=== PATIENT | female | born 1960 | race Caucasian/White ===

== ENCOUNTER 2018-01-30 09:44 | Outpatient (CLI) | payer MEDICARE, MEDICAID ==
--- NOTE | 2018-01-30 13:14 | MRI ---
BRAIN MRI WITH AND WITHOUT COTNRAST: COMPARISON: Reference is made to prior MRI brain exams dating back to 03/10/2009, the most recent of which is lacey ed 01/14/2017. INDICATION: Multiple sclerosis, intracranial mass, followup. FINDINGS: Extraaxial mass at the inferior right frontal region of the posterior aspect of the right anterior cr anial fossa is grossly stable at 1.3 x 1.0 cm in axial dimensions most consistent with a stable menin gioma. Susceptibility is present indicating calcified component. There is no acute territorial infarction or midline shift. Mild prominence of the ventricular system is present and there are multiple periventricular signal abnormalities again demonstrated compatible with demyelinating plaques in light of the patient's history of multiple sclerosis. Many of these l esions are cavitary, although there are no enhancing lesions to indicate actively demyelinating plaqu es. Exam is grossly stable to most recent comparison exam 01/14/2017. IMPRESSION: Stable brain MRI with findings indicative of multiple sclerosis with several demyelinating plaques, a s well as a stable avidly enhancing extraaxial mass compatible with meningioma. POS: [facility]
[2018-01-30] MEDS ORDERED: Gadobenate Dimeglumine 529 MG/1 ML (20ML VIAL) ONE (16:34)
== END 2018-01-30 09:45 | disposition home or self-care (01) ==
LOC: MRI 09:44
PROVIDERS: ATTEND Psychiatry & Neurology Neurology
DX: G35 Multiple sclerosis (principal); G93.9 Disorder of brain, unspecified
CPT/HCPCS: 70553

== ENCOUNTER 2018-11-10 12:50 | Outpatient (CLI) | payer MEDICARE, MEDICAID ==
--- NOTE | 2018-11-10 14:10 | ULT ---
RENAL ULTRASOUND: INDICATION: Neurogenic bladder. Incontinence. FINDINGS: Both kidneys have a normal sonographic appearance. No evidence of hydronephrosis or mass lesion. Remy th kidneys are symmetric size. The right kidney measures 9.4 cm and the left kidney measures 10.8 cm . The bladder is mildly distended and appears unremarkable. A post void volume was unable to be obtain ed. The prevoid bladder volume is recorded at 208 cc. IMPRESSION: Unremarkable renal ultrasound. POS: [facility]
== END 2018-11-10 12:51 | disposition home or self-care (01) ==
LOC: BICULT 12:50
PROVIDERS: ATTEND Urology
DX: N39.41 Urge incontinence (principal); G35 Multiple sclerosis; N31.9 Neuromuscular dysfunction of bladder, unspecified
CPT/HCPCS: 76770

== ENCOUNTER 2019-01-09 07:05 | Day surgery (SDC) | payer MEDICARE, MEDICAID ==
[2019-01-08 11:33] VITALS: BMI 23.3
[2019-01-09 07:20] LABS: #Basophils 0.1 thou/uL (0.0-0.2); #Eosinphils 0.1 thou/uL (0.0-0.7); #Lymphocytes 1.5 thou/uL (1.20-3.40); #Monocytes 0.6 thou/uL (0.11-0.59); #Neutrophils 2.6 thou/uL (1.40-6.50); %Basophils 1.4 % (0.0-1.0); %Eosinophils 2.2 % (0.0-10.0); %Lymphocytes 30.3 % (21.0-51.0); %Monocytes 13.2 % (0.0-10.0); %Neutrophils 52.8 % (42.0-75.0); Hemoglobin 14.2 g/dL (12.0-16.0); Mean Corpuscular HGB CONC 33.6 g/dL (32.0-36.0); Mean Corpuscular Hemoglobin 30.9 pg (27.0-31.0); Mean Corpuscular Volume 92.1 fL (78.0-98.0); Mean Platelet Volume 7.6 fL (7.4-10.4); Platelet Count 301 thou/uL (130-400); RBC Distribution Width 11.1 % (11.5-14.5); Red Blood Cell (RBC) Count 4.58 mill/uL (4.20-5.40); White Blood Cell (WBC) Count 4.9 thou/uL (4.8-10.8)
[2019-01-09 07:40] LABS: PTT 64.9 SEC (22.9-36.1)
[2019-01-09] MEDS ORDERED: Sodium Bicarbonate 2.5 MEQ/5 ML VIAL ONE (08:29)
[2019-01-09] MEDS ORDERED: Fentanyl 100 MCG/2 ML VIAL ONE (08:30)
[2019-01-09] MEDS ORDERED: Midazolam HCl 2 mg/2 ml Vial ONE (08:30)
[2019-01-09] MEDS ORDERED: SODIUM CHLORIDE 0.9% IVPB SCH (09:45)
[2019-01-09] MEDS ORDERED: CLINDAMYCIN IVPB SCH (09:45)
--- NOTE | 2019-01-09 09:53 | CT ---
Suprapubic catheter placement CT-guided Conscious sedation: At least 20 minutes were spent with the patient for conscious sedation. HISTORY: Dysfunctional bladder. Multiple sclerosis. FINDINGS: After explaining the procedure and answering all questions, limited CT imaging of the pelvi s was performed. Approximately 500 cc of sterile saline was instilled into the urinary bladder via the indwelling Rodriguez catheter. Sterile technique, buffered local anesthesia, conscious sedation, CT guidance, and an anterior midlin e suprapubic approach were used to carefully advance a 12-gauge catheter into the urinary bladder via trocar technique. Position was confirmed. Balloon inflated and clear urine drained. The catheter was secured externally with 0 silk suture and left draining to gravity. Patient tolerate d the procedure well and was returned to the holding area in good condition for further monitoring. IMPRESSION: Technically successful suprapubic catheter placement.
[2019-01-09] MEDS ORDERED: FLU VACC QS2019-20(6MOS UP)/PF 60 MCG/0.5 ML SYRINGE IM ONE (11:45)
== END 2019-01-09 11:40 | disposition home or self-care (01) ==
LOC: SPEC 07:05
PROVIDERS: ATTEND Urology
PROC: 0T9B30Z Drainage of Bladder with Drainage Device, Percutaneous Approach (ICD-10-PCS; principal; 2019-01-09)
DX: N31.9 Neuromuscular dysfunction of bladder, unspecified (principal); N39.41 Urge incontinence; G35 Multiple sclerosis; G62.9 Polyneuropathy, unspecified; Z87.891 Personal history of nicotine dependence; Z79.899 Other long term (current) drug therapy; Z88.0 Allergy status to penicillin
CPT/HCPCS: 51102; 77002; 85025; 85610; 85730; C2627; 36415; J2250; J3010; J3490

== ENCOUNTER 2019-02-03 12:17 | Outpatient (CLI) | payer MEDICARE, MEDICAID ==
--- NOTE | 2019-02-03 13:57 | MRI ---
BRAIN MRI WITH AND WITHOUT CONTRAST: Date: 02/03/2019 COMPARISON: 01/30/2018. HISTORY: Evaluate multiple sclerosis. TECHNIQUE: Multiplanar multisequence MR imaging of the brain obtained with and without contrast. FINDINGS: The diffusion weighted imaging demonstrates no evidence for acute infarction. The axial gradient echo imaging demonstrates no evidence for intracranial hemorrhage. The imaged paranasal sinuses and mastoid air cells demonstrate normal signal intensity. Arterial flow voids at the axial level of the skull base appear unremarkable on the T2-weighted imagi ng. There are numerous foci of increased T2 and FLAIR signal involving the periventricular, deep, and sub cortical white matter bilaterally. There is associated stable diffuse cerebral volume loss. There are scattered areas of increased signa l intensity also noted within the yazmin and upper medulla anteriorly and posteriorly, unchanged when compared to the prior examination as well. There is an enhancing extra-axial mass measuring 1.2 cm within the anteromedial aspect of the right t emporal region in the supraclinoid region, stable when compared to prior imaging, most consistent with a stable meningioma. Sagittal FLAIR imaging demonstrates diffuse volume loss involving the body of the corpus callosum, pa rticularly posteriorly, with foci of increased signal consistent with the patient's history of multiple sclerosis. The postcontrast imaging demonstrates no abnormal enhancement within the brain parenchyma. IMPRESSION: Findings consistent with the patient's history of multiple sclerosis, not significantly changed. Stab le enhancing right-sided extra-axial lesion, most consistent with a meningioma. Transcribed Date/Time: 02/03/2019 2:13 PM
== END 2019-02-03 12:18 | disposition home or self-care (01) ==
LOC: BICMRI 12:17
PROVIDERS: ATTEND Psychiatry & Neurology Neurology
DX: G35 Multiple sclerosis (principal); G93.9 Disorder of brain, unspecified
CPT/HCPCS: 70553

== ENCOUNTER 2019-04-15 11:45 | Outpatient (CLI) | payer MEDICARE, MEDICAID ==
--- NOTE | 2019-04-15 14:03 | MRI ---
MRI THORACIC SPINE WITH AND WITHOUT CONTRAST: INDICATIONS: Multiple sclerosis. COMPARISON: There are no comparison studies. FINDINGS: Motion artifact degrades the lower thoracic cord and cervical spine. The upper and mid cord signal appears normal on T2 and post contrast images. The sagittal T2 images appear unremarkable. There is no cord abnormality. On the axial T2 images, there is some heterogeneity seen in the lower thoracic cord, which is felt to be most consistent with motion artifact. I cannot completely exclude a demyelinating plaque in this region, however the findings are probably due to motion. The thoracic vertebrae maintain height and alignment. No significant disk bulge or protrusion. There is no evidence of central canal or foraminal stenosis. IMPRESSION: 1. Mild heterogeneous signal in the lower thoracic cord, seen on T2 axial images only. This is not co nfirmed on the T2 sagittal. No definite enhancement identified. While cord plaques in this region can not be completely excluded, the abnormalities are felt to be related to motion artifact on the axial T2 sequence. 2. Incidentally noted on the very first axial image, which is through the C6-C7 disk space, is eviden ce of a focal disk protrusion, which impinges on the cord. This should be further evaluated with a de dicated MRI of the cervical spine. POS: [facility]
--- NOTE | 2019-04-15 14:29 | MRI ---
MRI CERVICAL SPINE WITH AND WITHOUT CONTRAST: INDICATIONS: Multiple sclerosis. COMPARISON: None. FINDINGS: The cervical vertebrae maintain normal height and alignment. The disk spaces are preserved. At C3-C4 there is a diffuse disk bulge centrally with evidence of a disk protrusion paracentrally to the right, which impinges on the anterior cord on the right and may displace the exiting right C4 ner ve root. At C4-C5 mild disk bulge and spondylosis flatten the thecal sac, however the anterior subarachnoid sp bekah is preserved. No cord impingement or foraminal stenosis. At C5-C6 there is a prominent central disk protrusion which has inferior migration along the posterio r border of the C6 vertebra and continues to the C6-C7 disk level. This inferiorly migrated disk frag ment measures 7 mm in AP dimension in the axial projection. It compresses the anterior cord centrally . This extruded disk extends to the C6-C7 level and could potentially represent an extruded disk wit h superior migration from the C6-C7 level. At C7-T1 mild disk bulge without central canal or foraminal stenosis. Review of the cord signal shows a focal area of increased T2 signal in the cord at the C2 level. No e nhancement. This would be suspicious for MS plaque given the history of MS. There is also abnormal cord signal seen at the C3-C4 level, however, this is at the site of cord comp ression. MS plaque would be suspected although focal myelomalacia due to cord compression is a consid eration. There is also abnormal cord signal seen at C5-C6 and extending along the cord throughout the C6 verte bra, to the C6-C7 level. This is also associated with severe cord compression due to the extruded dis k, raising the possibility of myelomalacia versus MS plaque. No abnormal cord enhancement. IMPRESSION: 1. Focal disk protrusion at C3-C4 with cord compression anteriorly on the right. 2. Large extruded disk at C5-C6 with disk fragment extending inferiorly along the C6 vertebra to the C6-C7 disk space. This compresses the cervical cord, as described above. 3. There are scattered areas of abnormal cord signal seen on the T2 sequences, most apparent in the a xial T2. Signal in the upper cord at the C2 level would be consistent with multiple sclerosis plaque. There are other areas of cord signal seen at the C3-C4, C5-C6 and C6-C7 levels, which are associated with cord compression, as described above. POS: [facility]
[2019-04-15] MEDS ORDERED: Magnevist 469MG/ML 20 ML VIAL ONE ×2 (15:59)
== END 2019-04-15 11:46 | disposition home or self-care (01) ==
LOC: MRI 11:45
DX: G35 Multiple sclerosis (principal); M50.21 Other cervical disc displacement, high cervical region
CPT/HCPCS: 72156; 72157; A9579

== ENCOUNTER 2020-02-08 21:12 | Inpatient (IN) | payer MEDICARE, MEDICAID ==
[~2020-02-08 21:12] MED LIST: Glycopyrrolate 0.2 MG/ML 5 ML SYRINGE ONE; Ketorolac Tromethamine 30 MG/ML VIAL ONE; Lidocaine 1% PF 5 ML VIAL ONE; PROPOFOL 200 MG/20 ML VIAL ONE; Rocuronium Bromide 10 MG/ML (10ML VIAL) ONE; Succinylcholine 200 MG/10 ml SYRINGE FS ONE
[2020-02-08] MEDS ORDERED: Albumin 25% 100 ML ONE (21:56)
--- NOTE | 2020-02-08 22:48 | HP ---
HISTORY OF PRESENT ILLNESS: Alondra Mendez is a 59-year-old female, who lives at home with her mother. The patient has MS, is bed ridden, uses Keyonna lift for mobility. Her mother manages her care. The patient has a suprapubic catheter. The patient became weak with abdominal distention, nausea, vomiting, increased abdominal pain. The patient was seen at [facility] as she was tachycardic and tachypneic and COVID rapid test was negative. Blood gases 7.295, 46, 30, bicarb 22.8. Sodium 136, potassium 4.3, CO2 of 25, glucose of 209, calcium 9.5, BUN 25, creatinine 1.2, GFR 45. Liver function tests are normal. White count of 21,000, hemoglobin 18, platelet count 440,000. EKG, sinus tachycardia. 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 Ascites was noted. The patient was transferred by ambulance and arrives although deliberately communicative. She is coherent. ALLERGIES: PENICILLIN. SOCIAL HISTORY: Tobacco, none. Alcohol, none. MEDICATIONS: 1. MiraLAX. 2. Citrucel. Medication list is not sent with the patient and the family has a medication list, will bring it. PAST SURGICAL HISTORY: Hysterectomy, suprapubic tube. PAST MEDICAL HISTORY: MS. REVIEW OF SYSTEMS: Noncontributory. PHYSICAL EXAMINATION: VITAL SIGNS: Heart rate 125, respiratory rate 18, blood pressure 126/78. HEAD, EARS, EYES, NOSE, AND THROAT: Unremarkable. LUNGS: Clear to auscultation. CARDIAC: Sinus tachycardia. ABDOMEN: Distended, rigid, peritoneal signs, guarding throughout. EXTREMITIES: Unremarkable. ASSESSMENT AND PLAN: 1. Acute abdomen with cecal volvulus. The patient has had Levaquin and Flagyl about 7:00 p.m. She is allergic to penicillin. She received intravenous fluids. We will plan operative intervention with procedures indicated most likely, right colectomy. Risks of infection, bleeding, reoperation, anastomotic leakage discussed. Risks and benefits were explained. Plan, operative intervention tonight. 2. Multiple sclerosis, bed ridden, immobile, suprapubic tube. Increased morbidity of pneumonia, DVT, etc. 3. DVT prophylaxis. Job ID: [id number]
[2020-02-08] MEDS ORDERED: Fentanyl 100 MCG/2 ML VIAL ONE (22:54)
[2020-02-08] MEDS ORDERED: Propofol 1,000 MG/100 ML VIAL IV ONE (23:16)
[2020-02-08] MEDS ORDERED: Promethazine HCl 25 MG/ML VIAL SLOW IVP PRN (23:30)
[2020-02-08] MEDS ORDERED: Ondansetron HCl/PF 4 MG/2 ML Vial IVP PRN (23:30)
[2020-02-08] MEDS ORDERED: Promethazine HCl 25 MG/ML VIAL IM PRN (23:30)
--- NOTE | 2020-02-08 23:44 | RAD ---
RADIOGRAPH CHEST 1 VIEW: DATE: 02/08/2020 TIME: 11:31 PM HISTORY: 59-year-old female status post central line placement COMPARISON: 09/18/2016 FINDINGS: New finding of silhouetting of most of the left hemidiaphragm and blunting of the left lateral costop hrenic angle. The rest of the visualized lung kang are clear. No cardiomegaly. New left subclavian central venous catheter with distal tip overlying upper portion of right atrium. No pneumothorax. IMPRESSION: 1) left-sided central venous catheter placement without pneumothorax. 2) nonspecific changes at the left lung base, which could be atelectasis or pneumonia, with and witho ut left pleural effusion.
[2020-02-08] MEDS ORDERED: Sodium Chloride 0.9% (PF) 10 ML VIAL FS PRN (23:45)
[2020-02-08] MEDS ORDERED: Morphine 4 MG/ML VIAL SLOW IVP PRN (23:48)
[2020-02-08] MEDS ORDERED: Ondansetron PF 4 MG/2 ML Vial IVP PRN (23:48)
[2020-02-08] MEDS ORDERED: Ondansetron ODT 8 MG TAB SL PRN (23:49)
[2020-02-09] MEDS ORDERED: Fentanyl 100 MCG/2 ML VIAL ONE (00:09)
--- NOTE | 2020-02-09 01:10 | OP ---
DATE OF PROCEDURE: 02/08/2020 PREOPERATIVE DIAGNOSES: Cecal volvulus, multiple sclerosis, nonambulatory, suprapubic tube. POSTOPERATIVE DIAGNOSES: Cecal volvulus, multiple sclerosis, nonambulatory, suprapubic tube. PROCEDURE PERFORMED: Left subclavian vein central line, exploratory laparotomy, right colectomy, primary anastomosis. ANESTHESIA: General. ESTIMATED BLOOD LOSS: Less than 20 mL. BLOOD TRANSFUSION: None. DESCRIPTION OF PROCEDURE: Patient was taken to the operating room, where under general anesthesia, left upper clavicular area was prepared with ChloraPrep and draped in routine fashion. Seldinger technique used to place a left subclavian vein. Triple-lumen catheter secured with 3-0 silk suture and each port aspirated blood, flushed with saline solution. Sterile dressing applied. Abdomen prepared with ChloraPrep and draped in routine fashion. Midline incision made, carried down to skin, subcutaneous tissue down to fascia which was incised, entered the abdominal cavity sharply using cautery for hemostasis. There was a cecal volvulus. This was detorsed. The cecum was massively distended. Small bowel was of normal caliber. Remainder of the ascending colon, transverse colon was normal. About 8 inches from the ileocecal valve, the mesentery divided with cautery. Ileum divided with a YAMILET stapler. Right colon was very redundant and mesentery divided with LigaSure. The ileocolic vessel pedicle identified, doubly clamped, divided, and ligated with 2-0 silk ties. Duodenum identified, kept free of harm. Mesentery mobilized. Hepatic flexure taken down with the cautery and LigaSure. Proximal transverse colon divided with a YAMILET stapler. Specimen submitted to pathology. Ileocolic anastomosis was created with three fires of the YAMILET stapler, [id number] anastomosis. Mesentery closed with 3-0 silk. Anastomosis reinforced with interrupted seromuscular sutures with 3-0 silk. Good anastomosis palpated. Good hemostasis noted. Abdominal cavity irrigated. Ascites had been evacuated of more than 2 L. Abdominal cavity irrigated, irrigant evacuated, hemostasis noted. Sponge and needle counts were correct. Midline fascia closed with continuous suture of #1 PDS. Skin and subcutaneous tissues irrigated. Gloves and gowns changed. Skin approximated with chavez. DEXTER dressing applied. Patient tolerated the procedure well. Job ID: [id number]
[2020-02-09 04:47] LABS: #Lymphocytes 1.1 thou/uL (1.20-3.40); #Monocytes 1.9 thou/uL (0.11-0.59); #Neutrophils 12.5 thou/uL (1.40-6.50); %Basophils 0.2 % (0.0-1.0); %Eosinophils 0.1 % (0.0-10.0); %Lymphocytes 6.8 % (21.0-51.0); %Neutrophils 80.9 % (42.0-75.0); Hemoglobin 12.4 g/dL (12.0-16.0); Mean Corpuscular HGB CONC 33.1 g/dL (32.0-36.0); Mean Corpuscular Hemoglobin 30.5 pg (27.0-31.0); Mean Corpuscular Volume 92.2 fL (78.0-98.0); Mean Platelet Volume 8.3 fL (7.4-10.4); Platelet Count 287 thou/uL (130-400); RBC Distribution Width 11.5 % (11.5-14.5); Red Blood Cell (RBC) Count 4.05 mill/uL (4.20-5.40); White Blood Cell (WBC) Count 15.5 thou/uL (4.8-10.8)
[2020-02-09 05:02] LABS: Phosphorus 2.8 mg/dL (2.3-4.7)
[2020-02-09 05:04] LABS: Anion Gap 13 mmol/L (10-20); BUN (Urea Nitrogen) 22 mg/dL (9.8-20.1); Calc. Creatinine Clearance 0 mL/min (70-130); Carbon Dioxide 23 mmol/L (22-29); Chloride 102 mmol/L (98-107); Estimated GFR-MDRD 90; Glucose 128 mg/dL (70-105); Potassium 3.3 mmol/L (3.5-5.1); Sodium 135 mmol/L (136-145)
[2020-02-09] MEDS: Pantoprazole 40 MG VIAL IVP SCH (09:00)
[2020-02-09] MEDS ORDERED: Gabapentin 300 MG CAP PO SCH (09:00)
[2020-02-09] MEDS: Enoxaparin Sodium 40 MG/0.4 ML SYRINGE SC SCH (09:00)
[2020-02-09] MEDS ORDERED: Sodium Chloride 0.9% 1,000 ML IV SCH (09:30)
[2020-02-09] MEDS ORDERED: Potassium Chloride 20 MEQ TAB PO SCH (09:30)
--- NOTE | 2020-02-09 09:50 | PRG ---
DATE OF SERVICE: SUBJECTIVE: Ms. Mendez is doing well today. She has spent the night on PACU due to lack of IMCU beds. Heart rate is 110, blood pressure 90s to low one 100s. Labs this morning; sodium 135, potassium 3.3, creatinine 0.67, BUN 22. White count 15, hemoglobin 12. Urine output has been 300 overnight, marginal. Renal function is normal with improvement of her BUN. OBJECTIVE: LUNGS: Clear to auscultation. CARDIAC: Regular rate and rhythm without murmur or gallop. ABDOMEN: Soft, nondistended, plus bowel sounds. Dahlia suction incisional VAC in place. EXTREMITIES: Unremarkable. ASSESSMENT AND PLAN: Doing well status post laparotomy and right colectomy for cecal volvulus. The patient will be transferred to the surgical floor or any other bed available. She spends most of her day in a chair at home out of bed using a Keyonna lift to transfer her. We will need to get her out of bed today and she will spend most of the day in a neuro chair. We will replace her hypokalemia. She has slight tachycardia and urine is concentrated. We will give her another fluid bolus and repeat as necessary. Recheck her labs tomorrow. Discharge planning for later in the week. Job ID: [id number]
[2020-02-09] MEDS: Lactated Ringer's 1,000 ML IV SCH ×3 (12:11→19:40)
[2020-02-09] MEDS: Ketorolac Tromethamine 30 MG/ML VIAL IVP PRN (15:18)
[2020-02-09] MEDS: Acetaminophen 500 MG TAB PO PRN (19:40)
[2020-02-09] MEDS: Gabapentin 300 MG CAP PO SCH (21:37)
[2020-02-10] MEDS: Lactated Ringer's 1,000 ML IV SCH (02:24)
[2020-02-10 05:34] LABS: #Lymphocytes 1.7 thou/uL (1.20-3.40); #Monocytes 1.1 thou/uL (0.11-0.59); #Neutrophils 5.1 thou/uL (1.40-6.50); %Basophils 0.4 % (0.0-1.0); %Eosinophils 0.5 % (0.0-10.0); %Monocytes 13.9 % (0.0-10.0); %Neutrophils 64.2 % (42.0-75.0); Hemoglobin 10.6 g/dL (12.0-16.0); Mean Corpuscular HGB CONC 33.5 g/dL (32.0-36.0); Mean Corpuscular Hemoglobin 31.2 pg (27.0-31.0); Mean Corpuscular Volume 93.1 fL (78.0-98.0); Mean Platelet Volume 7.8 fL (7.4-10.4); Platelet Count 220 thou/uL (130-400); RBC Distribution Width 11.5 % (11.5-14.5); White Blood Cell (WBC) Count 7.9 thou/uL (4.8-10.8)
[2020-02-10 05:51] LABS: Anion Gap 10 mmol/L (10-20); BUN (Urea Nitrogen) 8 mg/dL (9.8-20.1); Calc. Creatinine Clearance 127 mL/min (70-130); Calcium 8.2 mg/dL (7.8-10.44); Carbon Dioxide 26 mmol/L (22-29); Chloride 111 mmol/L (98-107); Estimated GFR-MDRD Greater than 90; Glucose 88 mg/dL (70-105); Potassium 3.9 mmol/L (3.5-5.1); Sodium 143 mmol/L (136-145)
[2020-02-10] MEDS ORDERED: Lactated Ringer's 1,000 ML IV SCH (08:07)
[2020-02-10] MEDS: Bupropion 150 MG XL TAB PO SCH (08:30)
[2020-02-10] MEDS: Pantoprazole 40 MG VIAL IVP SCH (08:30)
[2020-02-10] MEDS: Enoxaparin Sodium 40 MG/0.4 ML SYRINGE SC SCH (08:30)
[2020-02-10] MEDS: Acetaminophen 500 MG TAB PO PRN (08:35)
--- NOTE | 2020-02-10 13:22 | PQF ---
CLINICAL DOCUMENTATION CLARIFICATION FORM: Dear Dr. Milton Smith Date: 02/10/20 1300 Please exercise your independent, professional judgment in responding to the clarification form. Clinical indicators are provided on the bottom of this form for your review. Please check appropriate box(es): [ ] Pneumonia secondary to (specify organism / underlying disease) [ ] Simple Pneumonia [ ] Pneumonia of unknown etiology [ ] Other diagnosis [ ] Unable to determine In addition, please specify: Present on Admission (POA): [ ] Yes [ ] No [ ] Unable to determine For continuity of documentation, please document condition throughout progress notes and discharge summary. Thank You. To be completed by CDI/Coding staff for physician review: CLINICAL INDICATORS - SIGNS / SYMPTOMS / LABS / RESULTS AND LOCATION IN MR Increased morbidity of pneumonia ( H8P/ [place] ) 02/07 CXR : nonspecific changes at the lung base, which could be atelectasis or pneumonia, with and without left pleural effusion. (02/07) WBC 15.5 (02/08) RISK FACTORS / RESULTS AND LOCATION IN MR Sepsis (ED Report) 02/07 Recent SX : Exploratory Laparotomy ([place]/ 02/08) TREATMENTS / RESULTS AND LOCATION IN MR Levaquin 02/07 CXR 02/07 Flagyl 02/07 CDS Signature: Brittany Marie RN Phone #: [phone] Date:02/10/2020 This is a permanent part of the Medical Record [facility]
--- NOTE | 2020-02-10 17:57 | PRG ---
DATE OF SERVICE: 02/10/2020 SUBJECTIVE: Ms. Mendez is doing well today. She has not had any nausea or vomiting. She has not passed gas. She has not been out of bed. We will request that nursing staff get her out of bed into a neuro chair. At home, she spends most of the day in a chair out of bed. The patient states she would like to stay here if she likes the care here. OBJECTIVE: VITAL SIGNS: Temperature 97.9 degrees, pulse 87, and blood pressure 144/73. Urine output is very good, 2800 for 24 hours. LUNGS: Clear to auscultation. CARDIAC: Regular rate and rhythm without murmur or gallop. ABDOMEN: Soft, slightly distended, slightly tympanitic. Bowel sounds present. Has DEXTER wound suction incisional VAC in place. EXTREMITIES: Unremarkable. LABORATORY DATA: White count 7 and hemoglobin 10.6. Basic metabolic profile normal. ASSESSMENT AND PLAN: The patient tolerates liquids. She is mobilizing fluids. We will TKO her IV fluids. Continue full liquids for now. Pain is under good control. Job ID: [id number]
[2020-02-10] MEDS: Gabapentin 300 MG CAP PO SCH (21:37)
[2020-02-11] MEDS: Acetaminophen 500 MG TAB PO PRN (04:41)
[2020-02-11] MEDS: Ketorolac Tromethamine 30 MG/ML VIAL IVP PRN ×3 (04:42→16:39)
[2020-02-11] MEDS: Enoxaparin Sodium 40 MG/0.4 ML SYRINGE SC SCH (09:11)
[2020-02-11] MEDS: Pantoprazole 40 MG VIAL IVP SCH (09:11)
[2020-02-11] MEDS: Lactated Ringer's 1,000 ML IV SCH ×2 (09:12→22:45)
[2020-02-11] MEDS: Bupropion 150 MG XL TAB PO SCH (09:12)
--- NOTE | 2020-02-11 09:27 | PRG ---
DATE OF SERVICE: 02/11/2020 SUBJECTIVE: Ms. Mendez had emesis last night. She is somewhat nauseated this morning. OBJECTIVE: LUNGS: Clear to auscultation. CARDIAC: Regular rate and rhythm without murmur or gallop. ABDOMEN: Soft, distended. DEXTER incisional VAC in place. No bowel sounds. EXTREMITIES: Unremarkable. The patient is up in a neuro chair this morning. Her color looks good. Physically, she looks very good. LABORATORY DATA: None today. ASSESSMENT AND PLAN: 1. Postoperative ileus. Plan to have sips and chips only and resume IV fluids. 2. Suprapubic tube change, remove DEXTER wound VAC. 3. MS and immobility, spend most of the day in bed. 4. Check labs in the morning. Job ID: [id number]
--- NOTE | 2020-02-11 10:52 | PQF ---
CLINICAL DOCUMENTATION CLARIFICATION FORM: Dear Dr. Milton Smith Date: 02/10/20 1300, 02/11/20 1050 Please exercise your independent, professional judgment in responding to the clarification form. Clinical indicators are provided on the bottom of this form for your review. Please check appropriate box(es): [ ] Pneumonia secondary to (specify organism / underlying disease) [ ] Simple Pneumonia [ yes] Pneumonia of unknown etiology [ ] Other diagnosis [ ] Unable to determine In addition, please specify: Present on Admission (POA): [ yes] Yes [ ] No [ ] Unable to determine For continuity of documentation, please document condition throughout progress notes and discharge summary. Thank You. To be completed by CDI/Coding staff for physician review: CLINICAL INDICATORS - SIGNS / SYMPTOMS / LABS / RESULTS AND LOCATION IN MR Increased morbidity of pneumonia ( H8P/ [place] ) 02/07 CXR : nonspecific changes at the lung base, which could be atelectasis or pneumonia, with and without left pleural effusion. (02/07) WBC 15.5 (02/08) RISK FACTORS / RESULTS AND LOCATION IN MR Sepsis (ED Report) 02/07 Recent SX : Exploratory Laparotomy ([place]/ 02/08) TREATMENTS / RESULTS AND LOCATION IN MR Levaquin 02/07 CXR 02/07 Flagyl 02/07 CDS Signature: Brittany Marie RN Phone #: [phone] Date:02/11/2020 This is a permanent part of the Medical Record [facility]
[2020-02-11] MEDS: Gabapentin 300 MG CAP PO SCH (20:34)
[2020-02-12 06:41] LABS: #Eosinphils 0.3 thou/uL (0.0-0.7); #Monocytes 0.9 thou/uL (0.11-0.59); #Neutrophils 5.9 thou/uL (1.40-6.50); %Basophils 0.3 % (0.0-1.0); %Eosinophils 3.2 % (0.0-10.0); %Lymphocytes 12.4 % (21.0-51.0); %Monocytes 10.6 % (0.0-10.0); %Neutrophils 73.4 % (42.0-75.0); Hemoglobin 10.4 g/dL (12.0-16.0); Mean Corpuscular HGB CONC 33.9 g/dL (32.0-36.0); Mean Corpuscular Volume 94.3 fL (78.0-98.0); Mean Platelet Volume 7.5 fL (7.4-10.4); Platelet Count 319 thou/uL (130-400); RBC Distribution Width 11.3 % (11.5-14.5); Red Blood Cell (RBC) Count 3.25 mill/uL (4.20-5.40)
[2020-02-12 06:58] LABS: Anion Gap 13 mmol/L (10-20); BUN (Urea Nitrogen) 15 mg/dL (9.8-20.1); Calc. Creatinine Clearance 127 mL/min (70-130); Calcium 8.2 mg/dL (7.8-10.44); Carbon Dioxide 26 mmol/L (22-29); Chloride 105 mmol/L (98-107); Estimated GFR-MDRD Greater than 90; Glucose 100 mg/dL (70-105); Potassium 3.7 mmol/L (3.5-5.1); Sodium 140 mmol/L (136-145)
[2020-02-12] MEDS: Enoxaparin Sodium 40 MG/0.4 ML SYRINGE SC SCH (09:12)
[2020-02-12] MEDS: Bupropion 150 MG XL TAB PO SCH (09:12)
[2020-02-12] MEDS: Pantoprazole 40 MG VIAL IVP SCH (09:13)
[2020-02-12] MEDS ORDERED: Sodium Chloride 0.9% 1,000 ML IV SCH (09:30)
[2020-02-12] MEDS: Acetaminophen 500 MG TAB PO PRN (11:59)
--- NOTE | 2020-02-12 13:23 | RAD ---
EXAM: Abdomen 2 views: Exam includes supine and left lateral decubitus views: HISTORY: Status post right hemicolectomy COMPARISON: None FINDINGS: There is abnormally dilated small bowel loops. There are associated air-fluid levels. Minimal gas in left colon and rectum. No evidence for free intraperitoneal air. Recent midline surgical changes. IMPRESSION: Dilated small bowel loops with some air-fluid levels. No free intraperitoneal air.
[2020-02-12] MEDS ORDERED: Cepastat Lozenges 1 LOZ PO PRN (14:39)
[2020-02-12] MEDS ORDERED: Chloraseptic Spray 180 ml Bottle PO PRN (14:39)
[2020-02-12] MEDS ORDERED: Lidocaine 2% Jelly 5 ML TUBE TOP SCH (15:00)
--- NOTE | 2020-02-12 16:43 | PDOC.GSPN ---
Surgery Progress Note: Subj - Subjective Narrative: Patient states that she is feeling all right. She was complaining of some nausea this morning and had not passed any gas since yesterday. I sent her for a plain film of the abdomen and she threw up several times down an x-ray. The plain films showed dilated small bowel loops with air-fluid levels and very little gas in the colon. Patient was tachycardic earlier today but urine output has been marginal and she is only on 70 mL an hour of IV fluid and not taking anything by mouth. I gave her a liter of normal saline over 2 hours and her heart rate came back down. White count is normal and she is afebrile. Abdomen is distended and slightly tympanic. Bowel sounds are present and fairly normal and she has only expected postoperative tenderness. Her incision is healing well and there is no erythema or drainage. Assessment/plan: Likely ileus following right hemicolectomy for cecal volvulus. She has had nausea and vomiting and has multiple dilated small bowel loops with air-fluid levels so an NG tube has been ordered to be placed to intermittent low wall suction. I have ordered PPN to be started as she has not taken much by mouth recently, and have ordered nutritional labs for tomorrow morning. She does have a central line for TPN if this is indicated. If she does not begin passing gas soon, consider CT. Unfortunately she is bedridden from her multiple sclerosis and likely has chronic poor function of her bowel given the history of cecal volvulus. Surgery Progress Note: Obj - Vital signs Vital signs: Vital Signs - Most Recent Temp Pulse Resp BP Pulse Ox 98.4 F 93 18 167/94 H 97 02/12/20 15:14 02/12/20 15:14 02/12/20 15:14 02/12/20 15:14 02/12/20 15:14 Surgery Progress Note: Results - Labs Result Diagrams: 02/12/20 06:26 02/12/20 06:26 Lab results: Laboratory Results - last 12 hr 02/12/20 02/12/20 06:26 06:26 WBC 8.0 RBC 3.25 L Hgb 10.4 L Hct 30.6 L MCV 94.3 MCH 32.0 H MCHC 33.9 RDW 11.3 L Plt Count 319 MPV 7.5 Neutrophils % 73.4 Lymphocytes % 12.4 L Monocytes % 10.6 H Eosinophils % 3.2 Basophils % 0.3 Neutrophils # 5.9 Lymphocytes # 1.0 L Monocytes # 0.9 H Eosinophils # 0.3 Basophils # 0.0 Sodium 140 Potassium 3.7 Chloride 105 Carbon Dioxide 26 Anion Gap 13 BUN 15 Creatinine 0.60 Estimated GFR (MDRD) Greater than 90 Glucose 100 Calcium 8.2
[2020-02-12] MEDS: Lactated Ringer's 1,000 ML IV SCH (17:46)
[2020-02-12] MEDS: Gabapentin 300 MG CAP PO SCH (21:00)
[2020-02-13] MEDS: Lactated Ringer's 1,000 ML IV SCH ×2 (04:22→19:22)
[2020-02-13 05:16] LABS: ALT (SGPT) 13 U/L (8-55); AST (SGOT) 12 U/L (5-34); Alkaline Phosphatase 66 U/L (40-110); Anion Gap 18 mmol/L (10-20); BUN (Urea Nitrogen) 18 mg/dL (9.8-20.1); Bilirubin, Total 0.6 mg/dL (0.2-1.2); Calc. Creatinine Clearance 137 mL/min (70-130); Calcium 8.2 mg/dL (7.8-10.44); Carbon Dioxide 21 mmol/L (22-29); Chloride 104 mmol/L (98-107); Estimated GFR-MDRD Greater than 90; Globulin 2.6 g/dL (2.4-3.5); Glucose 91 mg/dL (70-105); Potassium 3.5 mmol/L (3.5-5.1); Protein, Total 5.6 g/dL (6.0-8.3); Sodium 139 mmol/L (136-145)
[2020-02-13 05:37] LABS: Band 25 % (5-11); Eosinophils 2 % (0-10); Hemoglobin 10.1 g/dL (12.0-16.0); Lymphocytes 18 % (21-51); MDiff Complete? YES; Mean Corpuscular HGB CONC 33.1 g/dL (32.0-36.0); Mean Corpuscular Hemoglobin 30.7 pg (27.0-31.0); Mean Corpuscular Volume 92.5 fL (78.0-98.0); Mean Platelet Volume 7.4 fL (7.4-10.4); Monocytes 16 % (0-10); Neutrophil 39 % (42-75); Platelet Count 408 thou/uL (130-400); RBC Distribution Width 11.2 % (11.5-14.5); White Blood Cell (WBC) Count 6.4 thou/uL (4.8-10.8)
[2020-02-13 07:29] LABS: Magnesium 1.9 mg/dL (1.6-2.6); Phosphorus 3.9 mg/dL (2.3-4.7)
[2020-02-13] MEDS: Pantoprazole 40 MG VIAL IVP SCH (09:46)
[2020-02-13] MEDS: Enoxaparin Sodium 40 MG/0.4 ML SYRINGE SC SCH (09:46)
[2020-02-13] MEDS: Bupropion 150 MG XL TAB PO SCH (09:46)
[2020-02-13] MEDS: D5W-AA 4.25% with LYTES 1,000 ML IV SCH (11:51)
[2020-02-13 13:04] VITALS: BMI 28.0
[2020-02-13] MEDS ORDERED: hydrALAZINE 25 MG TAB PO PRN (15:34)
[2020-02-13] MEDS: Gabapentin 300 MG CAP PO SCH (20:57)
[2020-02-13] MEDS: DULoxetine 30 MG CAP PO SCH (20:57)
[2020-02-13] MEDS: Trospium 20 MG TAB PO SCH (20:58)
--- NOTE | 2020-02-13 22:39 | PRG ---
DATE OF SERVICE: 02/13/2020 SUBJECTIVE: Patient was seen during morning rounds. Awake, alert, in no distress. Patient is postop day #5, status post exploratory laparotomy, right colectomy, and primary anastomosis for a cecal volvulus. Patient developed an ileus yesterday. Unfortunately, patient is bedbound due to her MS. Patient is mildly , but denies any pain at this time. Patient voices no complaints or concerns. The mother is concerned as she feels like she is not improving. Patient remains n.p.o. and on TPN at 100 mL an hour. No nausea or vomiting reported. OBJECTIVE: VITAL SIGNS: Blood pressure 164/92, temperature 98.9, pulse 104, respirations 16, SpO2 of 96% on room air. GENERAL: Middle-age female, awake, alert, in no distress. HEENT: Head is atraumatic and normocephalic. Mucous membranes are moist. RESPIRATORY: Good inspiratory and expiratory effort, respirations are even and nonlabored. CARDIAC: Regular rate, regular rhythm. No pedal edema. ABDOMEN: Midline abdominal incision is well approximated with no signs of redness or drainage. Abdomen is distended, but soft. No tenderness to palpation. No peritoneal signs. No rigidity. Hypoactive bowel sounds. NEUROLOGIC: GCS 15. LABORATORY DATA: WBC 6.4, RBC 3.30, hemoglobin 10.1, hematocrit 30.5, platelets 408, bands 25. Sodium 139, potassium 3.5, chloride 104, BUN 18, creatinine 0.56, estimated GFR greater than 90, glucose 91, magnesium 1.9, albumin 3.0, prealbumin 10.0. ASSESSMENT: 1. Postoperative day #5, status post right hemicolectomy and primary anastomosis following a cecal volvulus. 2. Postoperative ileus. 3. History of multiple sclerosis, bedbound. PLAN: Continue supportive care and pain regimen. We will add MiraLAX and senna. We will also add hydralazine q.8 hours p.r.n. for elevated blood pressure. We will have a nursing staff get patient up in the neuro chair at least 4 times a day. Continue n.p.o. status and PPN until patient has return of bowel function. The plan was discussed with the patient's mother who agrees. Job ID: [id number]
[2020-02-14] MEDS: D5W-AA 4.25% with LYTES 1,000 ML IV SCH ×2 (00:23→13:48)
[2020-02-14 06:17] LABS: Anion Gap 13 mmol/L (10-20); BUN (Urea Nitrogen) 22 mg/dL (9.8-20.1); Calc. Creatinine Clearance 125 mL/min (70-130); Carbon Dioxide 26 mmol/L (22-29); Chloride 101 mmol/L (98-107); Estimated GFR-MDRD Greater than 90; Glucose 143 mg/dL (70-105); Phosphorus 3.2 mg/dL (2.3-4.7); Potassium 3.3 mmol/L (3.5-5.1); Sodium 137 mmol/L (136-145)
[2020-02-14 08:25] LABS: Band 3 % (5-11); Eosinophils 1 % (0-10); Hemoglobin 12.8 g/dL (12.0-16.0); Lymphocytes 23 % (21-51); MDiff Complete? YES; Mean Corpuscular HGB CONC 33.8 g/dL (32.0-36.0); Mean Corpuscular Hemoglobin 31.4 pg (27.0-31.0); Mean Corpuscular Volume 92.9 fL (78.0-98.0); Mean Platelet Volume 7.2 fL (7.4-10.4); Monocytes 5 % (0-10); Neutrophil 68 % (42-75); Platelet Count 354 thou/uL (130-400); RBC Distribution Width 11.3 % (11.5-14.5); Red Blood Cell (RBC) Count 4.08 mill/uL (4.20-5.40); White Blood Cell (WBC) Count 5.4 thou/uL (4.8-10.8)
[2020-02-14] MEDS: Bupropion 150 MG XL TAB PO SCH (09:18)
[2020-02-14] MEDS: Enoxaparin Sodium 40 MG/0.4 ML SYRINGE SC SCH (09:18)
[2020-02-14] MEDS: Trospium 20 MG TAB PO SCH ×2 (09:18→20:00)
[2020-02-14] MEDS: DULoxetine 30 MG CAP PO SCH ×2 (09:18→20:01)
[2020-02-14] MEDS: Pantoprazole 40 MG VIAL IVP SCH (09:18)
[2020-02-14] MEDS: Morphine 2 MG/ML VIAL SLOW IVP PRN (11:19)
[2020-02-14] MEDS ORDERED: Sodium Chloride 0.9% 500 ML IV SCH ×2 (12:15→19:30)
[2020-02-14] MEDS: Gabapentin 300 MG CAP PO SCH (20:00)
[2020-02-15] MEDS: D5W-AA 4.25% with LYTES 1,000 ML IV SCH (02:30)
--- NOTE | 2020-02-15 04:27 | PRG ---
DATE OF SERVICE: 02/14/2020 SUBJECTIVE: The patient was seen this evening during rounds. She was lying in bed, resting comfortably with no signs of acute distress. The patient with tachycardia, which has improved after 1 L of IV fluid. Still mildly tachycardic. OBJECTIVE: VITAL SIGNS: Temperature 97.9, pulse 113, respirations 16, oxygen saturation 95% on room air, and blood pressure 136/84. GENERAL: Well-appearing, middle-aged female, lying in bed with no signs of acute distress. PULMONARY: Equal chest rise and fall. No signs of acute respiratory distress. ASSESSMENT: 1. Postop day 6 status post exploratory laparotomy, right colectomy and primary anastomosis due to cecal volvulus. 2. Postop ileus, persistent. 3. History of multiple sclerosis. PLAN: Continue current n.p.o. with TPN. Continue physical and occupational therapy. Continue to up in the neuro chair. The patient is bed bound and cannot ambulate, so will be more difficult to resolve her ileus. Trauma Team did discuss with Dr. Coto for persistent tachycardia, which has slightly improved since IV fluid bolus. Job ID: [id number]
[2020-02-15 05:55] LABS: Anion Gap 11 mmol/L (10-20); BUN (Urea Nitrogen) 19 mg/dL (9.8-20.1); Calc. Creatinine Clearance 147 mL/min (70-130); Calcium 7.6 mg/dL (7.8-10.44); Carbon Dioxide 26 mmol/L (22-29); Chloride 104 mmol/L (98-107); Estimated GFR-MDRD Greater than 90; Glucose 118 mg/dL (70-105); Phosphorus 3.3 mg/dL (2.3-4.7); Potassium 3.5 mmol/L (3.5-5.1); Sodium 137 mmol/L (136-145)
[2020-02-15 06:04] LABS: Hemoglobin 11.2 g/dL (12.0-16.0); Mean Platelet Volume 7.2 fL (7.4-10.4); Platelet Count 360 thou/uL (130-400); RBC Distribution Width 11.2 % (11.5-14.5); White Blood Cell (WBC) Count 5.3 thou/uL (4.8-10.8)
[2020-02-15 06:30] LABS: Band 22 % (5-11); Eosinophils 2 % (0-10); Lymphocytes 27 % (21-51); MDiff Complete? YES; Monocytes 18 % (0-10); Neutrophil 31 % (42-75)
--- NOTE | 2020-02-15 08:54 | RAD ---
EXAM: Chest one view: Abdomen 2 views: HISTORY: Follow-up ileus COMPARISON: 02/12/2020 FINDINGS: Left central line and NG tube in place. Evidence for bilateral pleural effusions, solid minimally lar quinton on the left side with evidence for left lower lobe more confluent parenchymal changes with some air bronchograms evidence for pneumonia and/or atelectasis. Again noted are some abnormally dilated loops of small bowel with minimal gas seen in the rectum. Due to moderate overexposure I cannot totally exclude the possibility of a small amount of free intra peritoneal air. IMPRESSION: Persistent but possibly very slightly improved small bowel dilatation than on the prior study. Persistent pleural and parenchymal opacity changes bilaterally but more so on the left base with evid ence for left lower lobe atelectasis and/or pneumonia.
[2020-02-15] MEDS: DULoxetine 30 MG CAP PO SCH ×2 (08:55→20:37)
[2020-02-15] MEDS: Enoxaparin Sodium 40 MG/0.4 ML SYRINGE SC SCH (08:55)
[2020-02-15] MEDS: Bupropion 150 MG XL TAB PO SCH (08:55)
[2020-02-15] MEDS: Pantoprazole 40 MG VIAL IVP SCH (08:58)
[2020-02-15] MEDS: Trospium 20 MG TAB PO SCH ×2 (09:35→20:37)
[2020-02-15] MEDS: Acetaminophen 500 MG TAB PO PRN (11:40)
--- NOTE | 2020-02-15 15:14 | PRG ---
DATE OF SERVICE: 02/15/2020 SUBJECTIVE: Ms. Mendez over the weekend required placement of NG tube. PPN has been initiated. I discontinued PPN, started TPN. The patient's NG tube placed over the weekend has put out 175 on 02/12, 700 on 02/13, and 750 on 02/14. She has not passed any stool or flatus. OBJECTIVE: VITAL SIGNS: She remains afebrile. Heart rates 102 to 116. LUNGS: Clear to auscultation. CARDIAC: Regular rate and rhythm without murmur or gallop. Slight tachycardia. ABDOMEN: Soft, slightly distended, tympanitic, but nontender. Midline wound looks good. LABORATORY DATA: White count is 5.3, hemoglobin 11.2. She does have 22% bands today, 3% yesterday, 25% the day before. The patient's abdominal x-rays reveal changes consistent with ileus or partial obstruction, cannot by imaging. Chest x-ray reveals left lower lobe infiltrate, just a possible pneumonia, bowel dilatation slightly improved. The patient has been out of bed last . I have written communication orders daily the last few days prior to my being off for the weekend to get her out of bed. She was out of bed in ICU in a neuro chair and out of bed , but since by today, Saturday, she has not been out of bed. Her incentive spirometer is across the room on a shelf. I have indicated that she needs to use her incentive spirometer frequently, need to keep it at her bedside, and explained why this is so both to the patient and her mother. I have talked to the nurse about getting the patient up out of bed into a chair and having her up in a chair or wheelchair hours a day. This is how she spends most of her day at home. This will require multiple people to help lift her due to her multiple sclerosis. The patient's urine output is good. The patient does appear to have pneumonia, I have started on Levaquin and ceftriaxone. We will start that today. If she is not improved in the next day or two, we will consider a CT scan of the abdomen and pelvis. Job ID: [id number]
[2020-02-15] MEDS: Gabapentin 300 MG CAP PO SCH (20:37)
[2020-02-15] MEDS: Cefepime 2 GM in Sodium Chloride 0.9% 100 ML IVPB SCH (22:15)
[2020-02-15] MEDS: MAGNESIUM SULFATE IV SCH (22:16)
[2020-02-15] MEDS: MULTIVITAMINS IV SCH (22:16)
[2020-02-15] MEDS: [UNRECOGNIZED DRUG - OTHER] IV SCH (22:16)
[2020-02-15] MEDS: POTASSIUM ACETATE IV SCH (22:16)
[2020-02-16 08:52] LABS: Hemoglobin 10.6 g/dL (12.0-16.0); Mean Corpuscular HGB CONC 33.7 g/dL (32.0-36.0); Mean Corpuscular Hemoglobin 30.5 pg (27.0-31.0); Mean Corpuscular Volume 90.4 fL (78.0-98.0); Mean Platelet Volume 6.9 fL (7.4-10.4); Platelet Count 389 thou/uL (130-400); RBC Distribution Width 11.1 % (11.5-14.5); Red Blood Cell (RBC) Count 3.48 mill/uL (4.20-5.40); White Blood Cell (WBC) Count 5.3 thou/uL (4.8-10.8)
[2020-02-16 08:53] LABS: Band 13 % (5-11); Lymphocytes 15 % (21-51); MDiff Complete? YES; Monocytes 17 % (0-10); Myelocyte 1 % (0-0); Neutrophil 53 % (42-75); Platelet Morphology Comment Appears Adequate; RBC Morphology Normal
[2020-02-16] MEDS: Cefepime 2 GM in Sodium Chloride 0.9% 100 ML IVPB SCH ×2 (09:10→20:37)
[2020-02-16] MEDS: DULoxetine 30 MG CAP PO SCH ×2 (09:11→20:37)
[2020-02-16] MEDS: Bupropion 150 MG XL TAB PO SCH (09:11)
[2020-02-16] MEDS: Trospium 20 MG TAB PO SCH ×2 (09:11→20:38)
[2020-02-16] MEDS: Enoxaparin Sodium 40 MG/0.4 ML SYRINGE SC SCH (09:12)
[2020-02-16] MEDS: Pantoprazole 40 MG VIAL IVP SCH (09:12)
[2020-02-16] MEDS ORDERED: Metoclopramide HCl 10 MG/2 ML VIAL IVP SCH (09:15)
--- NOTE | 2020-02-16 10:13 | PRG ---
DATE OF SERVICE: 02/16/2020 SUBJECTIVE: Ms. Mendez is 8 days status post laparotomy, right colectomy for a cecal volvulus. Pathology confirms that without evidence of malignancy. The patient postoperatively diet started, but developed nausea and vomiting requiring NG tube placement. She has not passed flatus or stool. NG tube output in the last 24 hours was 700 mL. NG tube is in good position. Abdominal x-ray yesterday revealed slight improvement of abdominal distention relative to previous films. The patient has MS, is bedridden, immobile, although at home, she spends most of her day in a wheelchair or a neuro chair. Last , she was out of bed into a neuro chair. Yesterday asked her nurse to get her out of bed into a neuro chair or wheelchair to help her pulmonary function. Over the weekend, Saturday, Saturday, and Saturday, she had not been out of bed. X-rays demonstrated a left lower lobe infiltrative process consistent with atelectasis or pneumonia. The patient has a persistent tachycardia that slightly improved, was 123 yesterday, today down to 104 to 108. OBJECTIVE: LUNGS: Clear to auscultation. Diminished breath sounds at base left. No wheezing. CARDIAC: Slight sinus tachycardia, 95 to 105. ABDOMEN: Soft, distended, tympanitic. Incision well healed. No evidence of wound problems. Normal bowel sounds. Slight distention and tympany, although abdomen is soft. EXTREMITIES: Unremarkable. LABORATORY DATA: This morning, her white count is 5, hemoglobin 10.6. Differential does reveal 13 bands down from 22 yesterday. Basic metabolic profile is normal. Yesterday, PPN was changed to TPN via her central line. Antibiotics were started yesterday. ASSESSMENT AND PLAN: 1. Pneumonia, more likely this was present on admission and exacerbated by her multiple sclerosis, lack of mobility, and operative status. Cannot rule out aspiration at admission time. I have added antibiotics yesterday. We will continue those. I have asked the nurses to get her out of bed into a chair. The patient has deconditioning, has lost strength. The patient at home is managed by her mother with a [employer] lift, but at home, the patient had the strength to aid in her transfers and at this time, she has lost strength. I have asked Physical Therapy to see her as I have asked Rehab to see her and consider for postoperative rehab. 2. Postoperative ileus, 8 days postop without GI function. We will obtain a CAT scan of the abdomen and pelvis today, oral contrast per NG tube, and IV contrast. This will assess her lung bases as well as her postoperative status to assure there are no complication from right colectomy. 3. Multiple sclerosis, poor mobility. 4. Suprapubic tube. Job ID: [id number]
--- NOTE | 2020-02-16 12:28 | CT ---
CT Abdomen Pelvis W Con: 02/16/2020 11:55 AM CLINICAL INFORMATION: Status post hemicolectomy with abdominal distention COMPARISON: 02/28/2011 and KUB 02/15/2020 TECHNIQUE: Multiple contiguous axial images were obtained and a CT of the abdomen and pelvis with IV contrast. Oral contrast was administered. Coronal and sagittal reformats were performed. FINDINGS: Lower Chest: There are small bilateral pleural effusions with adjacent atelectasis. Abdomen: Liver: Stable subcentimeter hypodensities in liver too small to definite characterize but may represe nt cysts. There is a 2.2 cm area of enhancement in the right lobe the liver which may represent a hemangioma and was likely present on the prior examination. Bile Ducts: Normal caliber. Gallbladder: No calcified gallstones. Normal caliber wall. Pancreas: within normal limits. Spleen: within normal limits. Adrenals: within normal limits. Kidneys: There is an abnormal tiger stripe appearance of enhancement of both kidneys concerning for b ilateral urinary tract infection/pyelonephritis. Pelvis: Reproductive Organs: Status post hysterectomy. Ureters: within normal limits. Bladder: Decompressed by suprapubic catheter. Peritoneum: A very small amount of free air is seen in the upper abdomen adjacent to the liver. A sma ll amount of free fluid is seen scattered throughout the abdomen. Bowel: An NG tube is seen in the stomach. There are multiple dilated loops of small bowel without errol ar transition point. The enteric contrast is only seen in the proximal most small bowel loops. There is an anastomotic staple line within small bowel in the midabdomen. The left colon is decompres sed. Mesentery and Retroperitoneum: No enlarged mesenteric or retroperitoneal lymph nodes. Vessels: Normal. Abdominal Wall: Diffuse soft tissue anasarca. Bones: Degenerative changes in the spine. IMPRESSION: 1. Findings above may be secondary to postoperative ileus or small bowel obstruction. No clear transi tion point is identified. Free air and fluid in the abdomen may be from recent surgery. 2. Abnormal enhancement of the kidneys may be secondary to bilateral pyelonephritis. 3. Likely multiple hepatic cysts 4. Likely hepatic hemangioma 5. Bilateral pleural effusions with adjacent atelectasis
[2020-02-16] MEDS ORDERED: Iopamidol 370 76% 100 ML VIAL ONE (12:56)
[2020-02-16] MEDS: Acetaminophen 500 MG TAB PO PRN (13:21)
[2020-02-16] MEDS: Gabapentin 300 MG CAP PO SCH (20:37)
[2020-02-16] MEDS: MAGNESIUM SULFATE IV SCH (22:11)
[2020-02-16] MEDS: POTASSIUM ACETATE IV SCH (22:11)
[2020-02-16] MEDS: [UNRECOGNIZED DRUG - OTHER] IV SCH (22:11)
[2020-02-16] MEDS: MULTIVITAMINS IV SCH (22:11)
[2020-02-17] MEDS: Morphine 2 MG/ML VIAL SLOW IVP PRN (03:46)
[2020-02-17 04:40] LABS: Hemoglobin 10.9 g/dL (12.0-16.0); Mean Corpuscular HGB CONC 33.2 g/dL (32.0-36.0); Mean Corpuscular Hemoglobin 30.4 pg (27.0-31.0); Mean Corpuscular Volume 91.7 fL (78.0-98.0); Mean Platelet Volume 6.7 fL (7.4-10.4); Platelet Count 458 thou/uL (130-400); RBC Distribution Width 11.3 % (11.5-14.5); Red Blood Cell (RBC) Count 3.59 mill/uL (4.20-5.40)
[2020-02-17 04:45] LABS: ALT (SGPT) 16 U/L (8-55); AST (SGOT) 18 U/L (5-34); Albumin 2.8 g/dL (3.5-5.0); Alkaline Phosphatase 74 U/L (40-110); Anion Gap 14 mmol/L (10-20); BUN (Urea Nitrogen) 16 mg/dL (9.8-20.1); Bilirubin, Total 0.3 mg/dL (0.2-1.2); Calc. Creatinine Clearance 144 mL/min (70-130); Calcium 7.8 mg/dL (7.8-10.44); Carbon Dioxide 27 mmol/L (22-29); Chloride 103 mmol/L (98-107); Estimated GFR-MDRD Greater than 90; Globulin 2.4 g/dL (2.4-3.5); Glucose 107 mg/dL (70-105); Magnesium 2.3 mg/dL (1.6-2.6); Potassium 3.6 mmol/L (3.5-5.1); Protein, Total 5.2 g/dL (6.0-8.3); Sodium 140 mmol/L (136-145)
[2020-02-17 05:18] LABS: Band 13 % (5-11); Eosinophils 1 % (0-10); Lymphocytes 20 % (21-51); MDiff Complete? YES; Monocytes 18 % (0-10); Myelocyte 1 % (0-0); Neutrophil 47 % (42-75)
--- NOTE | 2020-02-17 09:20 | EKG ---
Test Reason : Blood Pressure : / mmHG Vent. Rate : 132 BPM Atrial Rate : 132 BPM P-R Int : 122 ms QRS Dur : 070 ms QT Int : 274 ms P-R-T Axes : 069 011 086 degrees QTc Int : 405 ms Sinus tachycardia Cannot rule out Anterior infarct , age undetermined Abnormal ECG Confirmed by FERNANDO MANUEL MD ([id number]) on 02/17/2020 9:20:09 AM Referred By: JAYME Confirmed By:FERNANDO MANUEL MD
[2020-02-17] MEDS: Bupropion 150 MG XL TAB PO SCH (10:25)
[2020-02-17] MEDS: Cefepime 2 GM in Sodium Chloride 0.9% 100 ML IVPB SCH ×2 (10:25→21:58)
--- NOTE | 2020-02-17 10:25 | RAD ---
TWO VIEW ABDOMEN: Supine and left decubitus views of abdomen. INDICATION: Ileus. COMPARISON: Comparison is made to CT of 02/16/2020 and plain films of 02/12/2020. FINDINGS: Postoperative changes with anterior skin chavez. Gas-filled mildly dilated loops of small bowel wit h air fluid levels again noted. Scattered gas and stool in the colon. IMPRESSION: Persistent gas-filled mildly dilated loops of small bowel. POS: AH
[2020-02-17] MEDS: Enoxaparin Sodium 40 MG/0.4 ML SYRINGE SC SCH (10:26)
[2020-02-17] MEDS: DULoxetine 30 MG CAP PO SCH ×2 (10:26→21:59)
[2020-02-17] MEDS: Pantoprazole 40 MG VIAL IVP SCH (10:26)
[2020-02-17] MEDS: Trospium 20 MG TAB PO SCH ×2 (10:27→21:59)
[2020-02-17] MEDS ORDERED: Iopamidol-370 76% 500 ML 1 ML ONE (11:19)
--- NOTE | 2020-02-17 14:26 | CT ---
CT PULMONARY ANGIOGRAM WITH IV CONTRAST AND 3D POSTPROCESSIN02/17/20 HISTORY: Shortness of breath. Patient had colectomy on February 08, 2020. FINDINGS: There is a 1.4 cm low density lesion in the left lobe of the thyroid gland. The thoracic aorta is wel l opacified without aneurysmal dissection. No filling defects are seen in the contrast opacified pulmonary arterial vasculature to suggest pulmo nary embolism. There are moderate to large bilateral pleural effusions with adjacent atelectatic changes. No pneumot horaces are seen. There are degenerative changes in the spine. The probable liver hemangioma noted on the CT abdomen and pelvis of 02/16/2020 is inadequately evaluated on the current exam. IMPRESSION: 1. No CT evidence of pulmonary embolism. 2. Moderate to large bilateral pleural effusions. 3. Thyroid lesion should be evaluated with ultrasound on a nonemergent basis. POS: OFF
--- NOTE | 2020-02-17 16:20 | PRG ---
DATE OF SERVICE: 02/17/2020 SUBJECTIVE: Ms. Mendez is feeling okay today. Temperature 98 degrees, heart rate 118 to 109, respiratory rate 18, blood pressure 149/92. Her gastric drainage has been 1300 overnight, urine output 3550. White count today is 8, hemoglobin 10.9. She has a band count of 13%. Basic metabolic profile is normal. Abdominal x-rays reveal distended loops of small bowel. Review of her CAT scan yesterday with radiologist, Dr. Michael Luna revealed dilated small bowel loops from the ligament of Treitz to the ileocolic anastomosis, there is no evidence of leakage. There is no evidence of mechanical obstruction. OBJECTIVE: LUNGS: Clear to auscultation. CARDIAC: Regular rate and rhythm without murmur or gallop. ABDOMEN: Soft. No bowel sounds. Wound well healed. DIAGNOSTIC STUDIES: CTA performed to rule out pulmonary embolus due to persistent tachycardia and this did not reveal any evidence of pulmonary embolism. She did have moderate to large bilateral pleural effusions. There was a thyroid lesion seen that recommend to be evaluated by ultrasound in the future. Echocardiogram has been ordered and is pending. Dr. Lalito Peñaloza has been consulted and case discussed with him. The patient informed that she was tachycardic and she states that she is anxious. The patient's mother is present. I had long discussion with her regarding her care. The patient's family called my office today stating that the family was told that nobody has seen her on some days. I had discussion with the patient's mother telling her that we see her everyday and even on the holidays, people will be seeing her, informed her of Dr. Peñaloza's consultation. ASSESSMENT AND PLAN: 1. Eight days status post laparotomy, right colon resection with abdominal exam with distention, high NG tube output, and ileus pattern. She has diffuse distention of the small bowel without mechanical obstruction signs. She does not have bowel sounds. 2. Malnutrition. Continue parenteral nutrition. 3. Intermittent tachycardia. CTA is negative for pulmonary embolism. Echocardiogram is pending. EKG ordered, pending. 4. CAT scan yesterday suggested pyelonephritis, but no hydronephrosis. The patient is on antibiotics. Dr. Peñaloza is seeing her in consultation. Antibiotic adjustment will be made by him if necessary. If she does not have resumption of bowel function, consideration of a contrast enema could be given. At the time of surgery, her colon was markedly small and small bowel distended. Await GI function. 5. Continue mobility. The patient is immobile due to MS, but at home, she is out of bed most of the day in a wheelchair or using a [employer] lift. Nurses have gotten her out of bed today and she has spent most of the day in a chair. Continue mobility efforts. 6. Deep venous thrombosis prophylaxis. Job ID: [id number]
--- NOTE | 2020-02-17 19:14 | CON ---
DATE OF CONSULTATION: 02/17/2020 HISTORY: Alondra Mendez is a very pleasant 59-year-old female, who has her mother at the bedside, who is a primary caregiver. Unfortunately, she has multiple sclerosis. She underwent operative procedure on the for sigmoid volvulus. She has a mildly persistent resting tachycardia. I was consulted for assistance. PAST MEDICAL HISTORY: Remarkable for: 1. MS. 2. Status post suprapubic catheter placement. 3. Status post hysterectomy. Unfortunately, she is nonambulatory. Fortunately, she has normal renal function. FAMILY HISTORY: Negative for lung disease in early age. SOCIAL HISTORY: She is a nonsmoker and nondrinker. She has a very supportive mother, who is at bedside. PHYSICAL EXAMINATION: GENERAL: Very pleasant. VITAL SIGNS: She is afebrile, heart rate is , respiratory rate is 18, oximetry is 95% on room air, and blood pressure 149/92. HEAD AND NECK EXAM: Unremarkable. LUNGS: Remarkable for decreased breath sounds at both bases. HEART: Regular rhythm. No S3. ABDOMEN: Soft, distended. EXTREMITIES: Unremarkable. IMAGING: Abdomen CT was reviewed, shows bilateral effusions and compressive atelectasis adjacent to effusions. LABORATORY DATA: White count 8, she has 13% bands, hemoglobin 10.9, and platelets 458. Electrolytes are unremarkable. IMPRESSION: Resting tachycardia with very mild left shift. I doubt her radiographic findings are pneumonia, although she is at risk for that. I think thromboembolic disease and occult cardiomyopathy need to be ruled out, although I doubt she has congestive heart failure. I suspect her pleural effusions are reactive to her abdominal procedure. I do not feel her pleural effusions are infected. Do not think they need to be tapped at this point in time. CT angiogram and echocardiogram have been ordered. We will follow the other physicians who are caring for. This is a 70 min consult with greater than 50% of the time spent on the unit with coordination of care. Job ID: [id number] MTDD
[2020-02-17] MEDS: Gabapentin 300 MG CAP PO SCH (22:00)
[2020-02-17] MEDS: MULTIVITAMINS IV SCH (22:08)
[2020-02-17] MEDS: MAGNESIUM SULFATE IV SCH (22:08)
[2020-02-17] MEDS: [UNRECOGNIZED DRUG - OTHER] IV SCH (22:08)
[2020-02-17] MEDS: POTASSIUM ACETATE IV SCH (22:08)
[2020-02-18] MEDS: Pantoprazole 40 MG VIAL IVP SCH (08:50)
[2020-02-18] MEDS: Trospium 20 MG TAB PO SCH ×2 (08:50→21:50)
[2020-02-18] MEDS: Bupropion 150 MG XL TAB PO SCH (08:50)
[2020-02-18] MEDS: DULoxetine 30 MG CAP PO SCH ×2 (08:50→21:49)
[2020-02-18] MEDS: Enoxaparin Sodium 40 MG/0.4 ML SYRINGE SC SCH (08:50)
[2020-02-18] MEDS: Acetaminophen 500 MG TAB PO PRN ×3 (08:59→21:49)
[2020-02-18] MEDS: Cefepime 2 GM in Sodium Chloride 0.9% 100 ML IVPB SCH ×2 (08:59→21:50)
--- NOTE | 2020-02-18 11:36 | PRG ---
DATE OF SERVICE: 02/18/2020 SUBJECTIVE: Alondra Mendez is a 59-year-old female. This morning, NG tube in place. TPN on board. Denies difficulty breathing. OBJECTIVE: VITAL SIGNS: Temperature 98, pulse 114, respiratory rate 18, sats 90% on room air, blood pressure 153/88. CHEST: Decreased breath sounds bilaterally. CARDIAC: Normal S1, S2. ABDOMEN: Soft. IMPRESSION: Status post lap, bilateral pleural effusion, atelectatic changes, severe deconditioning. Pulmonary is going to follow. Repeat chest x-ray to assess the level of fluid, though she is clearly asymptomatic. PLAN: Continue antibiotics, PT, supportive care. Job ID: [id number]
--- NOTE | 2020-02-18 13:28 | RAD ---
PORTABLE CHEST 1 VIEW: DATE: 02/18/2020. TIME: 12:32 PM. HISTORY: Pleural effusions. COMPARISON: 04/16/2019. FINDINGS/IMPRESSION: Left subclavian central venous catheter and nasogastric tube positions are unchanged. The heart size is normal. Moderate-sized bilateral pleural effusions are again noted. No pneumothoraces are seen. POS: KIRSTIEA
--- NOTE | 2020-02-18 14:08 | PDOC.GSPN ---
Surgery Progress Note: Subj - Subjective Narrative: Patient was feeling okay this morning. She states that she had 2 large bowel movements this morning. She cannot really comment on the consistency. She denies any nausea or abdominal pain. Her abdomen is still distended and NG output is still bilious. Her incision looks good. Bowel sounds are hypoactive. Last KUB still showed air-fluid levels and dilated loops of small intestine. Assessment/plan: Suspected ileus status post right hemicolectomy for cecal vo lvulus. Obstruction at the level of the anastomosis cannot be completely excluded by previous imaging. She did have bowel movements today but has not passed any gas and her NG output is still fairly high and bilious in color. I have ordered a Gastrografin enema tomorrow to try to evaluate the area of the anastomosis. Continue TPN and n.p.o. for now. Surgery Progress Note: Obj - Vital signs Vital signs: Vital Signs - Most Recent Temp Pulse Resp BP Pulse Ox 98.0 F 114 H 18 152/88 H 98 02/18/20 11:10 02/18/20 11:10 02/18/20 11:10 02/18/20 11:10 02/18/20 11:10 Surgery Progress Note: Results - Labs Result Diagrams: 02/17/20 04:00 02/17/20 04:00 Lab results: Laboratory Results - last 12 hr 02/18/20 02/18/20 05:39 11:12 POC Glucose 110 H 108 H
[2020-02-18] MEDS: Gabapentin 300 MG CAP PO SCH (21:49)
[2020-02-18] MEDS: [UNRECOGNIZED DRUG - OTHER] IV SCH (22:26)
[2020-02-18] MEDS: MAGNESIUM SULFATE IV SCH (22:26)
[2020-02-18] MEDS: POTASSIUM ACETATE IV SCH (22:26)
[2020-02-18] MEDS: MULTIVITAMINS IV SCH (22:26)
[2020-02-19 04:29] LABS: Band 8 % (5-11); Eosinophils 2 % (0-10); Hemoglobin 10.7 g/dL (12.0-16.0); Hypochromia SLIGHT = 6-15 cells (100X) (0-5/hpf); Lymphocytes 18 % (21-51); MDiff Complete? YES; Mean Corpuscular HGB CONC 33.7 g/dL (32.0-36.0); Mean Corpuscular Hemoglobin 30.7 pg (27.0-31.0); Mean Corpuscular Volume 91.2 fL (78.0-98.0); Mean Platelet Volume 6.6 fL (7.4-10.4); Monocytes 12 % (0-10); Neutrophil 60 % (42-75); Platelet Count 515 thou/uL (130-400); Platelet Morphology Comment Appears Increased; RBC Distribution Width 11.1 % (11.5-14.5); Red Blood Cell (RBC) Count 3.48 mill/uL (4.20-5.40); White Blood Cell (WBC) Count 11.5 thou/uL (4.8-10.8)
[2020-02-19 04:33] LABS: ALT (SGPT) 15 U/L (8-55); AST (SGOT) 17 U/L (5-34); Albumin 2.8 g/dL (3.5-5.0); Alkaline Phosphatase 92 U/L (40-110); Anion Gap 11 mmol/L (10-20); BUN (Urea Nitrogen) 17 mg/dL (9.8-20.1); Bilirubin, Total 0.3 mg/dL (0.2-1.2); Calc. Creatinine Clearance 147 mL/min (70-130); Calcium 8.1 mg/dL (7.8-10.44); Carbon Dioxide 26 mmol/L (22-29); Chloride 105 mmol/L (98-107); Estimated GFR-MDRD Greater than 90; Globulin 2.6 g/dL (2.4-3.5); Glucose 85 mg/dL (70-105); Magnesium 2.4 mg/dL (1.6-2.6); Phosphorus 4.4 mg/dL (2.3-4.7); Potassium 4.2 mmol/L (3.5-5.1); Protein, Total 5.4 g/dL (6.0-8.3); Sodium 138 mmol/L (136-145)
[2020-02-19] MEDS: Pantoprazole 40 MG VIAL IVP SCH (09:00)
[2020-02-19] MEDS ORDERED: Lidocaine 1% w/Epinephrine 1:100K 20 ML VIAL ONE (09:56)
--- NOTE | 2020-02-19 10:38 | RAD ---
EXAM: Barium enema HISTORY: Status post right hemicolectomy. Evaluate for anastomotic leak. COMPARISON: None FINDINGS: A rn bariatric radiograph was performed showing the CT contrast in the patient's rectum. Midline skin staple s are seen. A Gastrografin barium enema was performed. Contrast was seen extending retrograde to the level of th e anastomosis in the mid transverse colon region. The colon is normal in appearance without suspicious mass. No leakage of contrast from the bowel is s een. IMPRESSION: No evidence of anastomotic leak.
[2020-02-19] MEDS: Cefepime 2 GM in Sodium Chloride 0.9% 100 ML IVPB SCH ×2 (11:06→21:30)
[2020-02-19] MEDS: Trospium 20 MG TAB PO SCH ×2 (11:07→21:30)
[2020-02-19] MEDS: Bupropion 150 MG XL TAB PO SCH (11:07)
[2020-02-19] MEDS: DULoxetine 30 MG CAP PO SCH ×2 (11:07→21:29)
[2020-02-19] MEDS: Enoxaparin Sodium 40 MG/0.4 ML SYRINGE SC SCH (11:08)
--- NOTE | 2020-02-19 11:16 | PRG ---
DATE OF SERVICE: 02/19/2020 SUBJECTIVE: Marga Em is doing well today. She has had multiple bowel movements since yesterday, a large one yesterday. She had the urge this morning. She had a contrast enema that was normal. OBJECTIVE: VITAL SIGNS: Heart rate 113, 98.7 degrees, 18, 136/88. LUNGS: Clear to auscultation. CARDIAC: Regular rate and rhythm without murmur or gallop. ABDOMEN: Soft, nontender, plus bowel sounds. No tympany. LABORATORY DATA: Laboratories are normal. Basic metabolic profile is normal. ASSESSMENT AND PLAN: Ileus resolving. Poly-ileus contributed by atelectasis, like immobility and MS. Advance diet. Discontinue TPN after today's bag. The patient may be able to go to rehab over the weekend if she continues to do well. As for the intravenous antibiotics, these will to be changed to oral antibiotics. These were started thinking that she might have some degree of pneumonia, although Dr. Peñaloza and I believe that most of her pulmonary problems or atelectasis with her effusion is due to her immobility and intraabdominal process, cecal volvulus, and ileus and malnutrition. Resume home medications. Spend most of the day out of bed into a chair. Job ID: [id number]
[2020-02-19] MEDS ORDERED: MD-Gastroview 120 ML BOT ONE (11:50)
--- NOTE | 2020-02-19 13:58 | PRG ---
DATE OF SERVICE: 02/19/2020 SUBJECTIVE: Patient is feeling better. Has no acute complaints. OBJECTIVE: VITAL SIGNS: Temperature 97.8, pulse 109, respirations 18, O2 sats 96% on room air, blood pressure 160/95. HEENT: Unremarkable. NECK: No adenopathy or JVD. LUNGS: Somewhat diminished breath sounds in the bases. CARDIAC: S1, S2. Regular. ABDOMEN: Midline surgical wound, healing well. EXTREMITIES: No edema. LABORATORY DATA: White blood cell count 11.5, hematocrit 31.7, and platelet count 515. Sodium 138, potassium 4.2, chloride 105, CO2 of 26, BUN 17, creatinine 0.5, glucose 85. Echo showed diastolic cardiac dysfunction. ASSESSMENT: Reactive pleural effusions after surgery. RECOMMENDATION: Allow the patient to diurese as tolerated. No indication for thoracentesis. We will be available as needed. Job ID: [id number]
[2020-02-19] MEDS: Acetaminophen 500 MG TAB PO PRN (21:29)
[2020-02-19] MEDS: Gabapentin 300 MG CAP PO SCH (21:29)
[2020-02-20] MEDS: Trospium 20 MG TAB PO SCH ×2 (09:23→22:12)
[2020-02-20] MEDS: Cefepime 2 GM in Sodium Chloride 0.9% 100 ML IVPB SCH ×2 (09:23→22:11)
[2020-02-20] MEDS: Polyethylene Glycol 3350 17 GM Packet PO SCH (09:23)
[2020-02-20] MEDS: Pantoprazole 40 MG VIAL IVP SCH (09:23)
[2020-02-20] MEDS: DULoxetine 30 MG CAP PO SCH ×2 (09:23→22:11)
[2020-02-20] MEDS: Bupropion 150 MG XL TAB PO SCH (09:23)
[2020-02-20] MEDS: Enoxaparin Sodium 40 MG/0.4 ML SYRINGE SC SCH (09:24)
[2020-02-20] MEDS: Acetaminophen 500 MG TAB PO PRN ×2 (12:27→22:17)
--- NOTE | 2020-02-20 12:43 | PDOC.GSPN ---
Surgery Progress Note: Subj - Subjective Narrative: Patient is feeling good. She is tolerating her regular diet and having bowel movements and passing gas. No nausea or abdominal pain. Her incisions look good. She is awaiting rehab evaluation. Assessment/plan: Status post right hemicolectomy for cecal volvulus with resolution of postoperative ileus. Awaiting rehab evaluation. Surgery Progress Note: Obj - Vital signs Vital signs: Vital Signs - Most Recent Temp Pulse Resp BP Pulse Ox 97.8 F 117 H 14 132/90 96 02/20/20 11:54 02/20/20 11:54 02/20/20 11:54 02/20/20 11:54 02/20/20 11:54 Surgery Progress Note: Results - Labs Result Diagrams: 02/19/20 03:58 02/19/20 03:58
[2020-02-20] MEDS: Gabapentin 300 MG CAP PO SCH (22:12)
[2020-02-21] MEDS: Cefepime 2 GM in Sodium Chloride 0.9% 100 ML IVPB SCH ×2 (08:52→21:27)
[2020-02-21] MEDS: Trospium 20 MG TAB PO SCH ×2 (08:53→21:08)
[2020-02-21] MEDS: Enoxaparin Sodium 40 MG/0.4 ML SYRINGE SC SCH (08:53)
[2020-02-21] MEDS: Polyethylene Glycol 3350 17 GM Packet PO SCH (08:53)
[2020-02-21] MEDS: Bupropion 150 MG XL TAB PO SCH (08:53)
[2020-02-21] MEDS: Pantoprazole 40 MG GRANULES PACKET PO SCH (08:53)
[2020-02-21] MEDS: DULoxetine 30 MG CAP PO SCH ×2 (08:53→21:08)
[2020-02-21] MEDS: Acetaminophen 500 MG TAB PO PRN ×2 (11:42→21:09)
[2020-02-21] MEDS: Gabapentin 300 MG CAP PO SCH (21:08)
[2020-02-22] MEDS: Cefepime 2 GM in Sodium Chloride 0.9% 100 ML IVPB SCH (08:51)
[2020-02-22] MEDS: Enoxaparin Sodium 40 MG/0.4 ML SYRINGE SC SCH (08:52)
[2020-02-22] MEDS: Pantoprazole 40 MG GRANULES PACKET PO SCH (08:53)
[2020-02-22] MEDS: Bupropion 150 MG XL TAB PO SCH (09:07)
[2020-02-22] MEDS: Polyethylene Glycol 3350 17 GM Packet PO SCH (09:07)
[2020-02-22] MEDS: Trospium 20 MG TAB PO SCH ×2 (09:08→20:17)
[2020-02-22] MEDS: DULoxetine 30 MG CAP PO SCH ×2 (09:08→20:16)
[2020-02-22] MEDS: Acetaminophen 500 MG TAB PO PRN ×2 (10:26→18:54)
[2020-02-22] MEDS: Baclofen 10 MG TAB PO PRN (13:04)
[2020-02-22] MEDS ORDERED: Ibuprofen 600 MG TAB PO PRN (13:18)
--- NOTE | 2020-02-22 19:45 | DIS ---
DATE OF ADMISSION: 02/08/2020 DATE OF DISCHARGE: 02/22/2020 Discharge, transferred to nursing home hopefully, 02/22/2020. DISCHARGE DIAGNOSES: 1. Cecal volvulus. 2. Prolonged ileus related to below. 3. Multiple sclerosis with bedridden, nonambulatory state. Cared for at home by her mother. They use a [place] lift. Because of her physical deconditioning, the patient is plan transfer to a nursing home unit to obtain therapy strengthening hopefully as a bridge to go home. She was denied rehab due to her multiple sclerosis and severe debilitation. 4. Atelectasis, initially thought possibly due to pneumonia. Pulmonary consultation in review with radiologist and CAT scan revealed more likely atelectasis, although treated with Levaquin and ceftriaxone in the hospital and discharged home with Levaquin for 5 days to resume her home medications which consist of Cymbalta 30 mg b.i.d., gabapentin 600 mg at bedtime, baclofen 10 mg b.i.d., Wellbutrin 300 mg daily, VESIcare 10 mg daily, Levaquin 750 p.o. daily for four days, ibuprofen p.r.n. pain, Tylenol Extra Strength p.r.n. pain. Follow up in my office in 2 to 3 weeks. [place] removed prior to discharge. The patient spends most of her day in a wheelchair or chair at home using a [place] lift for transfer. Note, the patient has a suprapubic tube followed by Dr. Irene, change periodically, change this hospitalization. Job ID: [id number]
[2020-02-22] MEDS: Gabapentin 300 MG CAP PO SCH (20:17)
--- NOTE | 2020-02-23 09:28 | PRG ---
DATE OF SERVICE: SUBJECTIVE: Alondra Mendez is doing well today. She was denied rehab, but however that was not communicated to the case workers. They are now working on placement at the [facility] as the patient's mother cannot manage her at home due to her weakness postoperatively. The patient is tolerating her diet, has not had any nausea or vomiting. OBJECTIVE: VITAL SIGNS: Temperature 98.6 degrees, pulse 110, blood pressure 158/101. LUNGS: Clear to auscultation. CARDIAC: Regular rate and rhythm without murmur or gallop. ABDOMEN: Soft. Midline incision well healed. Suprapubic tube in place. LABORATORY DATA: None. ASSESSMENT AND PLAN: Doing well, ready to be transferred to a correction whenever arrangements are made. The patient's transportation is difficulty. I really do not need to see her in my office again postoperatively unless she has problems. Her wound is well healed. Job ID: [id number]
[2020-02-23] MEDS: Pantoprazole 40 MG GRANULES PACKET PO SCH (10:54)
[2020-02-23] MEDS: Enoxaparin Sodium 40 MG/0.4 ML SYRINGE SC SCH (10:56)
[2020-02-23] MEDS: Bupropion 150 MG XL TAB PO SCH ×2 (10:57→17:08)
[2020-02-23] MEDS: DULoxetine 30 MG CAP PO SCH ×3 (10:57→20:12)
[2020-02-23] MEDS: Trospium 20 MG TAB PO SCH ×3 (10:57→20:13)
[2020-02-23] MEDS: Polyethylene Glycol 3350 17 GM Packet PO SCH (10:58)
[2020-02-23] MEDS: Acetaminophen 500 MG TAB PO PRN (13:25)
[2020-02-23] MEDS ORDERED: Ondansetron ORAL SOLN. 4 MG/5 ML UDCUP PO PRN ×2 (14:46)
[2020-02-23] MEDS ORDERED: Ondansetron ODT 8 MG TAB SL PRN (14:46)
[2020-02-23] MEDS: Lactated Ringer's 1,000 ML IV SCH (15:15)
[2020-02-23 15:16] LABS: #Eosinphils 0.1 thou/uL (0.0-0.7); #Lymphocytes 1.1 thou/uL (1.20-3.40); #Monocytes 1.1 thou/uL (0.11-0.59); #Neutrophils 6.5 thou/uL (1.40-6.50); %Basophils 0.2 % (0.0-1.0); %Eosinophils 1.2 % (0.0-10.0); %Lymphocytes 12.4 % (21.0-51.0); %Monocytes 12.8 % (0.0-10.0); %Neutrophils 73.3 % (42.0-75.0); Hemoglobin 11.7 g/dL (12.0-16.0); Mean Corpuscular HGB CONC 32.7 g/dL (32.0-36.0); Mean Corpuscular Hemoglobin 30.6 pg (27.0-31.0); Mean Corpuscular Volume 93.5 fL (78.0-98.0); Mean Platelet Volume 6.6 fL (7.4-10.4); Platelet Count 532 thou/uL (130-400); RBC Distribution Width 11.5 % (11.5-14.5); Red Blood Cell (RBC) Count 3.81 mill/uL (4.20-5.40); White Blood Cell (WBC) Count 8.9 thou/uL (4.8-10.8)
[2020-02-23 15:36] LABS: Anion Gap 13 mmol/L (10-20); BUN (Urea Nitrogen) 10 mg/dL (9.8-20.1); Calc. Creatinine Clearance 114 mL/min (70-130); Calcium 8.8 mg/dL (7.8-10.44); Carbon Dioxide 27 mmol/L (22-29); Chloride 103 mmol/L (98-107); Estimated GFR-MDRD 90; Glucose 113 mg/dL (70-105); Potassium 4.1 mmol/L (3.5-5.1); Sodium 139 mmol/L (136-145)
--- NOTE | 2020-02-23 16:33 | RAD ---
TWO VIEWS OF THE ABDOMEN: 02/23/20 INDICATIONS: History of postop nausea and vomiting. FINDINGS: There is some residual contrast seen within the colon. There are persistent prominent gas and fluid f illed loops of small bowel within the central abdomen with differential air fluid levels suspicious f or partial small bowel obstruction. Lung bases are clear. No definite free air is noted. IMPRESSION: Moderately dilated gas and fluid filled loops of small bowel with differential air fluid levels sugge st partial small bowel obstruction. POS: BH
[2020-02-23] MEDS ORDERED: Bisacodyl 10 MG SUPP PR PRN (16:59)
[2020-02-23] MEDS ORDERED: Bisacodyl 10 MG SUPP PR SCH (17:15)
[2020-02-23] MEDS: Gabapentin 300 MG CAP PO SCH (20:13)
[2020-02-24] MEDS: Baclofen 10 MG TAB PO PRN (01:55)
[2020-02-24] MEDS: Lactated Ringer's 1,000 ML IV SCH ×3 (01:56→17:49)
[2020-02-24] MEDS: Polyethylene Glycol 3350 17 GM Packet PO SCH (09:50)
[2020-02-24] MEDS: Trospium 20 MG TAB PO SCH ×2 (09:50→20:10)
[2020-02-24] MEDS: DULoxetine 30 MG CAP PO SCH ×2 (09:50→20:10)
[2020-02-24] MEDS: Pantoprazole 40 MG GRANULES PACKET PO SCH (09:50)
[2020-02-24] MEDS: Bupropion 150 MG XL TAB PO SCH (09:50)
[2020-02-24] MEDS: Enoxaparin Sodium 40 MG/0.4 ML SYRINGE SC SCH (10:14)
--- NOTE | 2020-02-24 16:02 | PRG ---
DATE OF SERVICE: 02/24/2020 SUBJECTIVE: Ms. Mendez today is feeling better. In the last 24 to 36 hours, she has been having problems with nausea, but that seems to have resolved. She has had multiple emesis episodes yesterday and last night. Abdominal x-ray yesterday revealed air-fluid levels suggestive of ileus. Her abdomen was soft and nontender. Laboratories normal. Vital signs normal. Today, I visited her room this morning and we talked about reinserting the central line to start TPN again. I made efforts to access the left subclavian vein, but could not. My intention was to return later to establish central line on the right side. In the interim, however, the patient has had multiple bowel movements and feels much better, she is hungry. At this point, we will start a full liquid diet, advance to regular in the morning. If she tolerates this, she will possibly go to a [facility], either tomorrow afternoon or Saturday. OBJECTIVE: LUNGS: Clear to auscultation. CARDIAC: Regular rate and rhythm without murmur or gallop. ABDOMEN: Soft, nontender. EXTREMITIES: Unremarkable. ASSESSMENT AND PLAN: The patient is doing well. The patient believes that some of her nausea is precipitated by the Levaquin, and since Levaquin is of questionable benefit and it is questionable whether she really had a pneumonia and probably has more atelectasis, I will discontinue that. We will saline lock her if she tolerates her diet, plan transfer to the [facility] tomorrow or Saturday pending diet tolerance and clinical status. Job ID: [id number]
[2020-02-24] MEDS: Gabapentin 300 MG CAP PO SCH (20:10)
[2020-02-25] MEDS: Bupropion 150 MG XL TAB PO SCH (09:44)
[2020-02-25] MEDS: Polyethylene Glycol 3350 17 GM Packet PO SCH (09:44)
[2020-02-25] MEDS: DULoxetine 30 MG CAP PO SCH (09:44)
[2020-02-25] MEDS: Trospium 20 MG TAB PO SCH (09:44)
[2020-02-25] MEDS: Lactated Ringer's 1,000 ML IV SCH ×2 (09:45→16:22)
[2020-02-25] MEDS: Pantoprazole 40 MG GRANULES PACKET PO SCH (09:45)
[2020-02-25] MEDS: Enoxaparin Sodium 40 MG/0.4 ML SYRINGE SC SCH (09:45)
--- NOTE | 2020-02-25 17:40 | PRG ---
DATE OF SERVICE: 02/25/2020 SUBJECTIVE: Ms. Mendez is doing well today. She is tolerating her diet since yesterday. She has not had any more nausea or vomiting. She has had multiple bowel movements. OBJECTIVE: LUNGS: Clear to auscultation. CARDIAC: Regular rate and rhythm without murmur or gallop. ABDOMEN: Soft, nontender. The patient has resting tachycardia, evaluated by Medical, this is probably anxiety. Her wound is well healed. At this point, she is transferred to the [facility] for continued care. She will see me on an as-needed basis. Job ID: [id number]
[2020-02-25 19:21] VITALS: BP 138/74; TEMP 98.1
--- NOTE | 2020-02-26 12:55 | EKG ---
Test Reason : Blood Pressure : / mmHG Vent. Rate : 121 BPM Atrial Rate : 121 BPM P-R Int : 120 ms QRS Dur : 070 ms QT Int : 328 ms P-R-T Axes : 047 -08 046 degrees QTc Int : 465 ms Sinus tachycardia Low voltage QRS Borderline ECG Confirmed by TAN DELAROSA (2) on 02/26/2020 12:55:36 PM Referred By: MARVEL Confirmed By:TAN DELAROSA
== END 2020-02-25 18:45 | DRG 329 ==
LOC: ERS 21:12 → SDC/OP 22:21 → IMCU/EMU 23:30 → SJJU 02-09 12:57
PROVIDERS: ADMIT Specialist; ATTEND Specialist
PROC: 0DTF0ZZ Resection of Right Large Intestine, Open Approach (ICD-10-PCS; principal; 2020-02-08)
PROC: 02H633Z Insertion of Infusion Device into Right Atrium, Percutaneous Approach (ICD-10-PCS; 2020-02-08)
DX: K56.2 Volvulus (principal); J18.9 Pneumonia, unspecified organism; R18.8 Other ascites; J98.11 Atelectasis; E46 Unspecified protein-calorie malnutrition; J90 Pleural effusion, not elsewhere classified; R00.0 Tachycardia, unspecified; K56.7 Ileus, unspecified; E87.6 Hypokalemia; R53.81 Other malaise; Z20.828 Contact with and (suspected) exposure to other viral communicable diseases; G35 Multiple sclerosis; Z88.0 Allergy status to penicillin; Z79.899 Other long term (current) drug therapy; Z90.710 Acquired absence of both cervix and uterus; Z74.01 Bed confinement status
CPT/HCPCS: 36415; 36416; 71045; 71275; 74019; 74022; 74177; 74280; 80048; 80053; 83735; 84100; 84134; 84443; 85025; 88307; 93005; 93010; 93306; 99285; C9113; J0692; J1650; J1815; J1885; J1956; J2270; J2405; J2704; J2765; J3010; J3475; J3490; P9047; Q0162; Q9963; Q9967

== ENCOUNTER 2021-02-10 13:41 | Outpatient (CLI) | payer MEDICARE, MEDICAID | END 2021-02-10 13:42 | disposition home or self-care (01) | LOC: BICMAMMO 13:41 | PROVIDERS: ATTEND Family Medicine | DX: Z12.31 Encounter for screening mammogram for malignant neoplasm of breast (principal); Z80.3 Family history of malignant neoplasm of breast | CPT/HCPCS: 77063; 77067 ==

== ENCOUNTER 2022-04-07 17:14 | Emergency (ER) | payer MEDICARE, MEDICAID ==
[~2022-04-07 17:14] MED LIST changes: -Glycopyrrolate 0.2 MG/ML 5 ML SYRINGE ONE; +Iopamidol-370 76% 500 ML 1 ML ONE; -Ketorolac Tromethamine 30 MG/ML VIAL ONE; -Lidocaine 1% PF 5 ML VIAL ONE; -PROPOFOL 200 MG/20 ML VIAL ONE; -Rocuronium Bromide 10 MG/ML (10ML VIAL) ONE; -Succinylcholine 200 MG/10 ml SYRINGE FS ONE
[2022-04-07] MEDS ORDERED: Aspirin 325 MG TAB ONE (17:34)
[2022-04-07 17:43] LABS: #Lymphocytes 0.8 thou/uL (1.20-3.40); #Monocytes 0.8 thou/uL (0.11-0.59); #Neutrophils 9.3 thou/uL (1.40-6.50); %Basophils 0.2 % (0.0-1.0); %Eosinophils 0.4 % (0.0-10.0); %Lymphocytes 7.3 % (21.0-51.0); %Monocytes 7.1 % (0.0-10.0); Hemoglobin 13.7 g/dL (12.0-16.0); Mean Corpuscular HGB CONC 32.8 g/dL (32.0-36.0); Mean Corpuscular Hemoglobin 30.3 pg (27.0-31.0); Mean Corpuscular Volume 92.4 fl (78.0-98.0); Mean Platelet Volume 7.6 fL (7.4-10.4); Platelet Count 333 10x3/uL (130-400); RBC Distribution Width 11.5 % (11.5-14.5); Red Blood Cell (RBC) Count 4.52 mill/uL (4.20-5.40)
[2022-04-07] MEDS ORDERED: Aspirin Chewable 81 MG TAB ONE (17:43)
[2022-04-07 18:03] LABS: ALT (SGPT) 119 U/L (8-55); AST (SGOT) 282 U/L (5-34); Albumin 3.9 g/dL (3.5-5.0); Alkaline Phosphatase 154 U/L (40-110); Anion Gap 14 mmol/L (10-20); BUN (Urea Nitrogen) 17 mg/dL (9.8-20.1); Bilirubin, Total 0.8 mg/dL (0.2-1.2); Calc. Creatinine Clearance 0 mL/min (70-130); Carbon Dioxide 29 mmol/L (22-29); Chloride 104 mmol/L (98-107); Estimated GFR 91; Globulin 3.3 g/dL (2.4-3.5); Glucose 154 mg/dL (70-105); Potassium 3.8 mmol/L (3.5-5.1); Protein, Total 7.2 g/dL (6.0-8.3); Sodium 143 mmol/L (136-145)
== END 2022-04-08 00:42 ==
LOC: ERS 17:14
DX: R07.9 Chest pain, unspecified (principal); I10 Essential (primary) hypertension; D72.829 Elevated white blood cell count, unspecified
CPT/HCPCS: 36415; 71045; 71275; 80053; 83880; 84484; 85025; 85379; 93005; Q9967

== ENCOUNTER 2022-05-30 21:16 | Emergency (ER) | payer MEDICARE, MEDICAID ==
[2022-05-30 21:44] LABS: Bilirubin Negative (Negative); Blood, Urine Negative (Negative); Clarity Clear (Clear); Glucose, Urine (Dipstick) Normal (Negative); Ketone, Urine Trace mg/dL (Negative); Leukocyte 250 Leu/uL (Negative); Nitrite 2+ (Negative); Protein, Urine (Dipstick) Negative (Neg-Trace); RBC/HPF 0-3 HPF (0-3); Squamous Epithelial 0-3 HPF (0-3); Urobilinogen Normal mg/dL (Less than 2)
[2022-05-30 21:45] LABS: Bacteria/HPF 1+ HPF (None Seen)
[2022-05-30 22:12] LABS: #Eosinphils 0.2 thou/uL (0.0-0.7); #Lymphocytes 1.7 thou/uL (1.20-3.40); #Monocytes 0.9 thou/uL (0.11-0.59); #Neutrophils 3.4 thou/uL (1.40-6.50); %Basophils 0.6 % (0.0-1.0); %Eosinophils 2.5 % (0.0-10.0); %Lymphocytes 27.1 % (21.0-51.0); %Neutrophils 55.9 % (42.0-75.0); Hemoglobin 12.9 g/dL (12.0-16.0); Mean Corpuscular HGB CONC 32.8 g/dL (32.0-36.0); Mean Corpuscular Hemoglobin 30.8 pg (27.0-31.0); Mean Corpuscular Volume 93.8 fl (78.0-98.0); Mean Platelet Volume 7.5 fL (7.4-10.4); Platelet Count 312 10x3/uL (130-400); RBC Distribution Width 11.7 % (11.5-14.5); Red Blood Cell (RBC) Count 4.18 mill/uL (4.20-5.40); White Blood Cell (WBC) Count 6.1 10x3/uL (4.8-10.8)
[2022-05-30 22:33] LABS: ALT (SGPT) 10 U/L (8-55); AST (SGOT) 15 U/L (5-34); Albumin 3.9 g/dL (3.5-5.0); Alkaline Phosphatase 110 U/L (40-110); Anion Gap 12 mmol/L (10-20); BUN (Urea Nitrogen) 16 mg/dL (9.8-20.1); Bilirubin, Total 0.4 mg/dL (0.2-1.2); Calc. Creatinine Clearance 0 mL/min (70-130); Calcium 8.9 mg/dL (7.8-10.44); Carbon Dioxide 26 mmol/L (22-29); Chloride 104 mmol/L (98-107); Estimated GFR 99; Globulin 2.9 g/dL (2.4-3.5); Glucose 91 mg/dL (70-105); Magnesium 2.1 mg/dL (1.6-2.6); Potassium 3.6 mmol/L (3.5-5.1); Protein, Total 6.8 g/dL (6.0-8.3); Sodium 138 mmol/L (136-145)
== END 2022-05-30 23:30 | disposition home or self-care (01) ==
LOC: ERS 21:16
DX: R25.1 Tremor, unspecified (principal)
CPT/HCPCS: 70450; 71045; 80053; 81003; 81015; 83605; 83735; 85025; 93005; 94760

== ENCOUNTER 2022-10-17 05:36 | Emergency (ER) | payer MEDICARE, MEDICAID ==
[2022-10-17 07:55] LABS: Bilirubin Negative (Negative); Blood, Urine 3+ (Negative); CAUTI Indications for Culture Urological Procedure; Clarity Turbid (Clear); Glucose, Urine (Dipstick) Normal (Negative); Ketone, Urine Negative (Negative); Leukocyte 500 Leu/uL (Negative); Nitrite Negative (Negative); Protein, Urine (Dipstick) 300 mg/dL (Neg-Trace); RBC/HPF Greater than 50 HPF (0-3); Specific Gravity, Urine 1.028 (1.002-1.036); Squamous Epithelial 0-3 HPF (0-3); Urobilinogen Normal mg/dL (Less than 2); WBC/HPF Greater than 50 HPF (0-3)
[2022-10-17 07:57] LABS: Bacteria/HPF 1+ HPF (None Seen); Unclassified Crystals 2+ HPF (None Seen)
[2022-10-17 07:59] LABS: Urine Culture Reflex Yes Yes
== END 2022-10-17 09:19 ==
LOC: ERS 05:36
DX: Z46.6 Encounter for fitting and adjustment of urinary device (principal); N39.0 Urinary tract infection, site not specified
CPT/HCPCS: 51705; 81001; 87086

== ENCOUNTER 2023-02-12 13:38 | Outpatient (CLI) | payer MEDICARE, MEDICAID ==
[2023-02-12 15:21] LABS: Hematocrit 39.8 % (34.9-44.5); Hemoglobin 12.7 g/dL (12.0-15.5); Mean Corpuscular HGB CONC 31.9 g/dL (32.0-36.0); Mean Corpuscular Hemoglobin 28.9 pg (27.0-33.0); Mean Corpuscular Volume 90.7 fl (81.6-98.3); Mean Platelet Volume 10.2 fl (7.4-10.4); Platelet Count 381 10x3/uL (150-450); RBC Distribution Width 12.6 % (11.5-14.5); Red Blood Cell (RBC) Count 4.39 10x6/uL (3.90-5.03); White Blood Cell (WBC) Count 8.5 10x3/uL (3.5-10.5)
[2023-02-12 15:38] LABS: Anion Gap 15 mmol/L (10-20); BUN (Urea Nitrogen) 13 mg/dL (9.8-20.1); Calc. Creatinine Clearance 0 mL/min (70-130); Calcium 8.9 mg/dL (7.8-10.44); Carbon Dioxide 29 mmol/L (23-31); Chloride 104 mmol/L (98-107); Estimated GFR 92; Glucose 110 mg/dL (80-115); PTT 40.8 sec (22.0-33.0); Potassium 3.4 mmol/L (3.5-5.1); Prothrombin Time 10.5 sec (9.5-12.1); Sodium 145 mmol/L (136-145)
== END 2023-02-12 13:39 | disposition home or self-care (01) ==
LOC: LABBT 13:38
PROVIDERS: ATTEND Urology
DX: Z01.818 Encounter for other preprocedural examination (principal); G35 Multiple sclerosis; N21.0 Calculus in bladder; N31.9 Neuromuscular dysfunction of bladder, unspecified; N39.41 Urge incontinence; K59.01 Slow transit constipation; R33.9 Retention of urine, unspecified
CPT/HCPCS: 80048; 85027; 85610; 85730; 87077; 87086; 87186; 93005; 93010

== ENCOUNTER 2023-02-22 08:01 | Day surgery (SDC) | payer MEDICARE, MEDICAID ==
[2023-02-12 14:36] VITALS: BMI 25.8
[2023-02-22] MEDS ORDERED: Sodium Chloride 0.9% 100 ML ONE (10:53)
[2023-02-22] MEDS ORDERED: cefTRIAXone (ROCEPHIN) 1 GM VIAL ONE (10:53)
[2023-02-22] MEDS ORDERED: PROPOFOL 20 ML ONE ×2 (10:55→11:25)
[2023-02-22] MEDS ORDERED: fentaNYL PF 100 MCG/2 ML SYRINGE ONE (10:55)
[2023-02-22] MEDS ORDERED: Lidocaine 1% PF 5 ML VIAL ONE (10:55)
[2023-02-22] MEDS ORDERED: Midazolam HCl 2 mg/2 ml Vial ONE (11:22)
== END 2023-02-22 13:55 | disposition home or self-care (01) ==
LOC: SDC 08:01
PROVIDERS: ATTEND Urology
PROC: 0TCB8ZZ Extirpation of Matter from Bladder, Via Natural or Artificial Opening Endoscopic (ICD-10-PCS; principal; 2023-02-22)
DX: N21.0 Calculus in bladder (principal); N31.9 Neuromuscular dysfunction of bladder, unspecified; N39.498 Other specified urinary incontinence; G35 Multiple sclerosis; K59.01 Slow transit constipation; Z88.0 Allergy status to penicillin; Z88.8 Allergy status to other drugs, medicaments and biological substances; Z87.891 Personal history of nicotine dependence; Z79.899 Other long term (current) drug therapy; Z90.710 Acquired absence of both cervix and uterus
CPT/HCPCS: 52318; 82365; C1769; 88300; J0696; J2250; J2704; J3490

== ENCOUNTER 2023-04-29 21:23 | Emergency (ER) | payer MEDICARE, OTHER | END 2023-04-29 23:12 | LOC: ERS 21:23 | DX: S82.301A Unspecified fracture of lower end of right tibia, initial encounter for closed fracture (principal); S82.831A Other fracture of upper and lower end of right fibula, initial encounter for closed fracture; S90.01XA Contusion of right ankle, initial encounter; G35 Multiple sclerosis; K56.609 Unspecified intestinal obstruction, unspecified as to partial versus complete obstruction; D25.9 Leiomyoma of uterus, unspecified; H53.2 Diplopia; N13.9 Obstructive and reflux uropathy, unspecified; G82.50 Quadriplegia, unspecified; F32.9 Major depressive disorder, single episode, unspecified; H54.8 Legal blindness, as defined in USA; N31.9 Neuromuscular dysfunction of bladder, unspecified; W05.0XXA Fall from non-moving wheelchair, initial encounter; Z55.6 Problems related to health literacy | CPT/HCPCS: 29515 ==

== ENCOUNTER 2024-04-10 12:26 | Outpatient (CLI) | payer MEDICARE, MEDICAID ==
[2024-04-10 13:50] LABS: Anion Gap 12 mmol/L (10-20); BUN (Urea Nitrogen) 19 mg/dL (9.8-20.1); Calc. Creatinine Clearance 0 mL/min (70-130); Calcium 8.8 mg/dL (7.8-10.44); Carbon Dioxide 30 mmol/L (23-31); Chloride 105 mmol/L (98-107); Estimated GFR 103; Glucose 74 mg/dL (80-115); Potassium 3.7 mmol/L (3.5-5.1); Sodium 143 mmol/L (136-145)
[2024-04-10 14:08] LABS: #Basophils 0.06 10x3/uL (0.0-0.2); %Basophils 0.9 % (0.0-1.0); %Eosinophils 4.2 % (0.0-10.0); %Lymphocytes 22.9 % (21.0-51.0); %Monocytes 21.4 % (0.0-10.0); %Neutrophils 50.3 % (42.0-75.0); Hematocrit 38.1 % (36.0-47.0); Hemoglobin 12.2 g/dL (12.0-16.0); Mean Corpuscular Hemoglobin 28.9 pg (27.0-31.0); Mean Corpuscular Volume 90.3 fL (78.0-98.0); Platelet Adequacy Comment Platelets Normal; Platelet Count 347 10x3/uL (130-400); RBC Distribution Width 12.9 % (11.5-14.5); Red Blood Cell (RBC) Count 4.22 mill/uL (4.20-5.40)
[2024-04-10 14:36] LABS: PTT 58.8 sec (22.9-36.1); Prothrombin Time 13.3 sec (12.0-14.7)
== END 2024-04-10 12:27 | disposition home or self-care (01) ==
LOC: LABBT 12:26
PROVIDERS: ATTEND Urology
DX: Z01.818 Encounter for other preprocedural examination (principal); N21.0 Calculus in bladder; R33.9 Retention of urine, unspecified; N39.41 Urge incontinence; K59.01 Slow transit constipation; N31.9 Neuromuscular dysfunction of bladder, unspecified
CPT/HCPCS: 80048; 85025; 85610; 85730; 93005; 93010

== ENCOUNTER 2024-04-23 08:37 | Day surgery (SDC) | payer MEDICARE, MEDICAID ==
[2024-04-10 12:42] VITALS: BMI 24.2
[2024-04-23] MEDS ORDERED: Gentamicin 80 MG/2 ML VIAL ONE (10:05)
[2024-04-23] MEDS ORDERED: fentaNYL PF 100 MCG/2 ML SYRINGE ONE (11:10)
[2024-04-23] MEDS ORDERED: Dexamethasone 20 MG/5 ML VIAL ONE (11:11)
[2024-04-23] MEDS ORDERED: Lidocaine 1% PF 5 ML VIAL ONE (11:11)
[2024-04-23] MEDS ORDERED: Ondansetron PF 4 MG/2 ML Vial ONE (11:11)
[2024-04-23] MEDS ORDERED: PROPOFOL 20 ML ONE (11:11)
[2024-04-23] MEDS ORDERED: ePHEDrine Sulfate 50 MG/10 ML VIAL ONE (11:41)
[2024-04-23] MEDS ORDERED: Oxybutynin 5 MG TAB ONE (13:03)
== END 2024-04-23 15:15 ==
LOC: SDC 08:37
PROVIDERS: ATTEND Urology
PROC: 0TCB8ZZ Extirpation of Matter from Bladder, Via Natural or Artificial Opening Endoscopic (ICD-10-PCS; principal; 2024-04-23)
DX: N21.0 Calculus in bladder (principal); N17.9 Acute kidney failure, unspecified; N31.9 Neuromuscular dysfunction of bladder, unspecified; N39.41 Urge incontinence; H54.7 Unspecified visual loss; F32.A Depression, unspecified; G62.9 Polyneuropathy, unspecified; G35 Multiple sclerosis; K59.01 Slow transit constipation; Z87.891 Personal history of nicotine dependence; Z90.710 Acquired absence of both cervix and uterus; Z90.49 Acquired absence of other specified parts of digestive tract; Z88.0 Allergy status to penicillin; Z88.8 Allergy status to other drugs, medicaments and biological substances; Z79.899 Other long term (current) drug therapy
CPT/HCPCS: 52318; 82365; C1769; J1100; J1580; J2405; J2704; 88300